=== PATIENT | female | born 1940 | race Caucasian/White ===

== ENCOUNTER 2016-12-01 14:31 | Inpatient (IN) | payer MEDICARE ==
[2016-12-01] MEDS ORDERED: NS 0.9% 1000 ML* 1,000 ML IV ONE (17:38)
[2016-12-01 18:18] LABS: Hematocrit 26 % (35-47); Hemoglobin 8.5 g/dl (12.0-16.0); Mean Corpuscular HGB Conc 32 g/dl (31-36); Mean Corpuscular Hemoglobin 31 pg (27-31); Mean Corpuscular Volume 95 fL (80-97); Mean Platelet Volume 8 um3 (7.4-10.4); Red Blood Count 2.79 10^6/ul (4.0-5.4); Red Cell Distribution Width 14 % (10.5-15); White Blood Count 9.7 10^3/ul (3.5-10.8)
[2016-12-01 18:19] LABS: Add Diff/Slide Review? Manual Diff Added; Comments Flag Yes
[2016-12-01 18:25] LABS: Albumin 3.3 g/dL (3.2-5.2); BUN/Creatinine Ratio 30.5 (8-20); Calcium 8.6 mg/dL (8.6-10.3); EGFR African American 42.2 (>60); EGFR Non-African American 32.8 (>60); Globulin 3.2 g/dL (2-4); Total Bilirubin 0.6 mg/dL (0.2-1.0); Total Protein 6.5 g/dL (6.4-8.9)
[2016-12-01 18:27] LABS: Troponin I 0.01 ng/mL (<0.04)
--- NOTE | 2016-12-01 18:27 | RAD ---
INDICATION: Hypotension COMPARISON: Chest x-ray dated November 02, 2009 TECHNIQUE: Single AP portable view of the chest was obtained. FINDINGS: Image quality is compromised due to the relative inferiority of a portable chest x-ray. Again seen is a right upper chest cardiac pacemaker with 2 leads overlying the heart. There is an intramedullary wilmer fixated with medullary screws overlying the proximal left humerus. The heart and mediastinum exhibit normal size and contour. The lungs are grossly clear. There is no evidence of a large pleural effusion. Visualized bones are normal for the patient's age. IMPRESSION: No radiographic evidence for acute cardiopulmonary abnormality on this portable chest x-ray.
[2016-12-01 18:44] LABS: Add Path Review? YES; Hypochromasia 1+; Neutrophil % 62 % (38-83); Reactive Lymph % 3 % (0-6)
[2016-12-01 19:23] LABS: Urine Bacteria Absent (Absent); Urine Bilirubin Negative (Negative); Urine Glucose Negative (Negative); Urine Nitrite Negative (Negative)
[2016-12-01] MEDS ORDERED: cefTRIAXone(*) 1 GM in NS 0.9% 50 ML* 50 ML IVPB ONE (19:59)
[2016-12-01] MEDS ORDERED: DOXYcycline CAP(*) 100 MG PO SCH (21:00)
[2016-12-01 22:47] LABS: Ferritin 321.9 ng/mL (11-307)
[2016-12-01 22:50] LABS: Folate > 20.00 ng/mL (>3.99)
[2016-12-01 22:51] LABS: Vitamin B12 617 pg/mL (180-914)
[2016-12-01] MEDS: traMADol TAB* 50 MG PO SCH (23:01)
[2016-12-01] MEDS: NS 0.9% 1000 ML* 1,000 ML IV SCH (23:02)
[2016-12-01] MEDS: Carvedilol TAB* 6.25 MG PO SCH (23:02)
[2016-12-01 23:20] LABS: Total Iron Binding Capacity 307 mcg/dL (250-450); Transferrin 219 mg/dL (203-362)
[2016-12-01 23:22] LABS: Iron < 15 ug/dL (50-212)
--- NOTE | 2016-12-01 23:55 | HP ---
CC: RED Alonzo; Ike Johnson * HOSPITAL MEDICINE HISTORY AND PHYSICAL: DATE OF ADMISSION: 12/01/16 PRIMARY CARE PROVIDERS: RED Alonzo; "Dr. Otilia Perkins." ATTENDING PHYSICIAN: Dr. Brissa Olson * (dictation provided by Elizabeth Valerio NP) . CHIEF COMPLAINT: Tiredness, cough, and low-grade fever. HISTORY OF PRESENT ILLNESS: Ms. Austin is a 76-year-old female with a past medical history for 4 hip surgeries with arthritis, hypertension, hyperlipidemia , pacemaker for a left bundle branch block, and chronic renal insufficiency, who presents to the hospital today with concern for extreme tiredness. Ms. Austin states that she has been feeling unwell for about 3 weeks. She noted as of about a week ago that she was having some incontinence of urine that was very unusual for her. She denied any dysuria. She has had a low-grade temperature with fever running around 100 each evening. On Thursday of last week , she went to see her primary care physician and was diagnosed with Lyme disease. At that point, she was prescribed amoxicillin, which she started taking on Thursday. She continued to feel worse through the week despite being on amoxicillin. She was seen on Thursday by Dr. Perkins, who again checked her labs and noted that she was having persistent anemia. Unfortunately, I do not have those labs available, but per the patient's report, Dr. Perkins, wanted to see her back on Thursday. He saw her today and again scarlett her labs and noted that her hemoglobin was 7.9 and had her brought to [facility] for a blood transfusion. Ms. Austin states that she had no bites that she thought were consistent with tick bites. 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 She also reports in the past week, she has developed a nonproductive cough. She did have a chest x-ray with Dr. Perkins, who reported to her that it did not show any acute infiltrate or abnormality. She further reports a poor appetite, but she denies any nausea, vomiting, abdominal pain. She has had no chest pain, no shortness of breath. The patient does state that she has had formed stool, recently, she has had only brown stool until starting her iron supplementation just this week and now has noted black stool. In the emergency room, though Ms. Austin's hemoglobin was 7.9 at [facility] today , it was 8.5 on our check. Her platelet count is normal at 160, white blood cell is normal at 9.7. She has a slight worsening of her BUN and creatinine to 47 and 1.54 respectively. Her alk phos is slightly elevated at 139. Her urine shows 3+ leuk esterase and epithelial cells, but no bacteria. Chest x-ray shows no acute infiltrate. EKG shows paced rhythm. PAST MEDICAL HISTORY: 1. Diagnosis of Lyme disease earlier this week. 2. Right hip surgery x2. 3. Left hip surgery x2. 4. Tubal ligation. 5. Arthritis. 6. Osteoporosis. 7. Hypertension. 8. Hyperlipidemia. 9. History of pacemaker for left bundle branch block. 10. Chronic kidney disease. MEDICATIONS: 1. Amoxicillin 500 mg p.o. t.i.d. 2. Multivitamin with mineral 2 tabs p.o. daily. 3. Ferrous sulfate 4 tabs p.o. daily. 4. Simvastatin 10 mg p.o. at bedtime. 5. Carvedilol 12.5 mg p.o. t.i.d. 6. Tramadol 50 mg p.o. q.6 hours. 7. Oxycodone/acetaminophen 5/325 mg 1 tab p.o. q.4 hours. ALLERGIES: To BACLOFEN and SULFA ANTIBIOTICS. FAMILY HISTORY: The patient's mother related to cancer at 78. Father at 86 related to heart disease. SOCIAL HISTORY: No report of alcohol, tobacco, or drug use. The patient is a falcon. She states that her son, Uriel Erazo, would be her healthcare proxy , he is in [place], his phone number is [phone]. REVIEW OF SYSTEMS: A 14-point review of systems was completed with Ms. Austin and all those not mentioned above were negative. PHYSICAL EXAMINATION GENERAL: Ms. Austin is lying in the bed. She is in no acute distress. VITAL SIGNS: Temperature 99.4, respiratory rate 12, O2 saturation 100% on room air, blood pressure 129/80, heart rate 80. LUNGS: Clear to auscultation bilaterally with no accessory muscle use and good aeration. HEART: S1, S2. No murmur, rub, or gallop and regular. ABDOMEN: Soft, nontender with bowel sounds positive x4. EXTREMITIES: No cyanosis or edema. NEURO: She is alert, she is oriented x3. She moves all extremities equally. There is no facial asymmetry or focal weakness. Extraocular movements are intact. SKIN: Intact. DIAGNOSTIC STUDIES/LAB DATA: WBC 9.7, hemoglobin 8.5, hematocrit 26, platelet count 160. In review of previous record, I note the patient has had low hemoglobin, but this was all related to hip surgeries. Iron 1.08. Urine again shows 3+ leuk esterase, no nitrite, positive epithelial cells, and no bacteria. Chest x-ray shows no acute intrathoracic process. EKG shows paced rhythm and heart rate of about 70. ASSESSMENT AND PLAN: Ms. Austin is a 76-year-old female with a past medical history of pacemaker for which she reports is a left bundle branch block, chronic kidney disease, hypertension, hyperlipidemia, multiple hip surgeries, and recent positive diagnosis for Lyme earlier this week, who presents to the hospital today with concern for severe tiredness, low energy, and anemia. Our plans are for observation in the hospital for the followin. Anemia: It appears at this point she is symptomatic from her anemia, although of course this could be related to her Lyme disease as well. Her hemoglobin has been noted to be as low as 7.9 and her blood pressure was noted to be low at Dr. Perkins's office down to the 80s systolically. I think it would be prudent to treat her with1 unit of packed red blood cells to see if these improve those parameters. It is not clear what is driving her anemia. She has no report of dark stools prior to starting iron this week. I have sent a stool occult blood and this is pending. I do note that Lyme disease can rarely be associated with anemia Anaplasmosis is more associated with anemia; PCR is pending. I will also add on a B12, folate and iron studies. 2. Urinary tract infection: The patient has no bacteria in her urine, but she does have 3+ leuk esterase and is reporting incontinence at home. Plan to treat with doxycycline, which would also cover for Lyme disease or other tick borne illness. 3. Lyme disease: Again, this was diagnosed at Dr. Perkins's office. Plan to continue treatment, but I am going to switch over to doxycyline, which would offer better coverage for any co-infection with other tick-borne illness such as anaplasmosis as well as cover her urinary tract infection. 4. Fever. Patient is febrile, which could be associated with lyme infection. Fortunately her vitals are otherwise stable. She has no leukocytosis. CRP is pending. 5. History of hypertension: Continue Coreg. 6. DVT prophylaxis: With heparin subcu. 7. Disposition: To the medical floor. TIME SPENT: Approximately 60 minutes was spent on the admission of this patient , more than half the time was spent with the patient at the bedside reviewing the events leading up to this hospitalization, performing the physical examination, and reviewing the plan of care. ELIZABETH VALERIO, GARCIA [id number]/[facility] #: [id number] EL
[2016-12-02] MEDS: Acetaminophen TAB* 325 MG PO PRN (00:23)
[2016-12-02] MEDS: traMADol TAB* 50 MG PO SCH ×4 (05:18→23:56)
[2016-12-02 07:18] LABS: Hematocrit 23 % (35-47); Hemoglobin 7.4 g/dl (12.0-16.0); Mean Corpuscular HGB Conc 33 g/dl (31-36); Mean Corpuscular Hemoglobin 30 pg (27-31); Mean Corpuscular Volume 93 fL (80-97); Mean Platelet Volume 8 um3 (7.4-10.4); Red Blood Count 2.46 10^6/ul (4.0-5.4); Red Cell Distribution Width 15 % (10.5-15); White Blood Count 7.2 10^3/ul (3.5-10.8)
[2016-12-02 07:20] LABS: Add Diff/Slide Review? Manual Diff Added; BUN/Creatinine Ratio 30.8 (8-20); Calcium 7.6 mg/dL (8.6-10.3); Comments Flag Yes; EGFR African American 44.9 (>60); EGFR Non-African American 34.9 (>60)
[2016-12-02 07:44] LABS: C Reactive Protein 118.2 mg/L (< 5.00)
[2016-12-02] MEDS ORDERED: Nitrofurantoin Macrocrystals* 50 MG CAP PO SCH (09:00)
[2016-12-02] MEDS: Carvedilol TAB* 6.25 MG PO SCH ×3 (10:05→20:49)
[2016-12-02] MEDS: DOXYcycline CAP(*) 100 MG PO SCH ×2 (10:12→20:48)
[2016-12-02] MEDS: NS 0.9% 1000 ML* 1,000 ML IV SCH ×2 (10:19→20:50)
--- NOTE | 2016-12-02 14:56 | PN ---
Subjective Date of Service: 12/02/16 Interval History: HOSPITALIST PROGRESS NOTE Patient seen and examined at bedside. She feels a little better today. Major complaint is fatigue. Denies dyspnea, but has frequent dry cough. Family History: Unchanged from Admission Social History: Unchanged from Admission Past Medical History: Unchanged from Admission Objective Active Medications: Acetaminophen (Tylenol Tab*) 650 mg PO Q4H PRN PRN Reason: FEVER Last Admin: 12/02/16 00:23 Dose: 650 mg Carvedilol (Coreg Tab*) 12.5 mg PO TID [facility] Last Admin: 12/02/16 13:48 Dose: 12.5 mg Doxycycline Hyclate (Vibramycin Cap(*)) 100 mg PO BID [facility] Last Admin: 12/02/16 10:12 Dose: 100 mg Sodium Chloride (Ns 0.9% 1000 Ml*) 1,000 mls @ 100 mls/hr IV PER RATE [facility] Last Admin: 12/02/16 10:19 Dose: 100 mls/hr Oxycodone/Acetaminophen (Percocet 5/325 Tab*) 1 tab PO Q4H PRN PRN Reason: PAIN - MILD TO MODERATE Tramadol HCl (Ultram*) 50 mg PO Q6HR [facility] Last Admin: 12/02/16 13:48 Dose: 50 mg Vital Signs 12/02/16 12/02/16 12/02/16 07:18 07:40 08:01 Temperature 98.4 F Pulse Rate 62 Respiratory 18 20 Rate Blood Pressure 85/44 94/58 (mmHg) O2 Sat by Pulse 95 Oximetry Oxygen Devices in Use Now: None Appearance: Pleasant lady lying in bed in NAD. Eyes: No Scleral Icterus Ears/Nose/Mouth/Throat: Mucous Membranes Moist Neck: Trachea Midline Respiratory: Symmetrical Chest Expansion and Respiratory Effort, Clear to Auscultation Cardiovascular: RRR - Normal S1 and S2 Abdominal: NL Sounds; No Tenderness; No Distention Extremities: No Edema Neurological: Alert and Oriented x 3, NL Muscle Strength and Tone Lines/Tubes/Other Access: Clean, Dry and Intact Peripheral IV Nutrition: Taking PO's Result Diagrams: 12/02/16 06:49 12/02/16 06:49 Assess/Plan/Problems-Billing Assessment: Mrs. Austin is a 76yo F with PMH of HTN, HLD, s/p pacer, arthritis, osteoporosis , s/p hip replacement, who presented to ED with c/o 2 weeks of fatigue, weakness , intermittent fevers, found to have worsening anemia. - Patient Problems (1) Fever Comment: - Etiology unclear at this time. - Lyme serology 11/26/16 showed positive IgG, but negative IgM. - Erlichia/Anaplasma pending. - Check blood cultures. - CxR showed no infiltrate and UA was abnormal - follow urine culture. - Continue doxycycline for now. - ID consult requested. (2) Anemia Comment: - As per our records, patient has been anemic at least since 2011, but those CBCs were checked during surgical admissions. - Anemia w/u shows stool negative for blood (stools are black likely because of the iron she's taking). Iron level is low at <15, but ferritin is high at 322, with normal folate and B12. - Hb is lower today after receiving 1 PRBC last night - check haptoglobin and LDH for possible hemolysis. - Hematology consult requested before giving her more blood. (3) Thrombocytopenia Comment: - Likely associated with current infection. - Continue to monitor. (4) HTN (hypertension) Comment: - Continue Coreg. (5) DVT prophylaxis Comment: - SQ heparin. (6) Full code status Status and Disposition: Change to inpatient.
[2016-12-02 15:27] LABS: Immature Retic Fraction 0.59
[2016-12-02 15:28] LABS: Corrected Retic Count 1.3 % (0.5-1.5)
[2016-12-02 17:17] LABS: RBC Parasite Smear No Parasites Seen (No Parasite)
[2016-12-02] MEDS ORDERED: cefTRIAXone VIAL(*) 1,000 MG in NS 0.9% 50 ML* 50 ML IVPB SCH (21:00)
--- NOTE | 2016-12-02 21:27 | CONS ---
CONSULTATION REPORT: DATE OF CONSULT: 12/02/16 REQUESTING PHYSICIAN: Dr. Cooper. CONSULTING SERVICE: Infectious Disease. REASON FOR CONSULT: Fever, cough. IMPRESSION: 1. Ten days of fevers, myalgia, cough productive of sputum occasionally, no hemoptysis, no dyspnea, no infiltrate on chest x-ray. Pneumonia seems unlikely. She did have pharyngitis and some runny nose, postnasal drip. This could predominantly be a viral upper respiratory infection. She has had urinary incontinence which is unusual for her, so the fever could be more related to a cystitis, though her urinalysis is not particularly impressive. She has anemia which is chronic, maybe a little bit worse than baseline. If there is an infection driving that, it could babesiosis which is the only tick borne infection that causes anemia, though I think that is less likely or if present must be fairly low grade infection given the stable hemoglobin here. 2. Chronic normocytic anemia, normal bilirubin. 3. Chronic kidney disease. 4. Elevated C-reactive protein and thrombocytopenia, could be all reactive to the underlying systemic infection which could cause a cough as well. 5. Cough, could be related to bronchitis, postnasal drip. No evidence of reflux, could be a response to systemic infection. Her various cultures are pending. She has not had Babesia testing. 6. SULFA allergy. RECOMMENDATIONS: Continue doxycycline. We will cover her urine. She does not have serologic evidence of a Lyme infection at this point, but would cover that Lyme as well. Babesia, PCR and thick smear. HISTORY OF PRESENT ILLNESS: This is a 76-year-old woman with chronic anemia, admitted with fatigue, cough and fever. They came on about 10 days ago, first the cough which became occasionally productive of brownish sputum. No hemoptysis, no shortness of breath or chest pain. Her cough has persisted, it is mostly nonproductive. She has had some aches and chills, so she was started on amoxicillin to cover Lyme. She had a Lyme serology on the , ZAKIA positive, Western Blot negative, IgM and IgG positive. She has had an occasional fever here to 38.2. She had noticed a few days of urinary incontinence as well, which is usual for her. No dysuria or frequency. She was found to be anemic as an outpatient, little bit worse than baseline. Her last hemoglobin was 11 in March, down to 8 on , 7.4 this morning. She had some fluid resuscitation overnight. She had a chest x-ray yesterday that showed no acute process. She had blood and urine cultures sent that are pending. Urinalysis showed no blood but there is leukocyte esterase. She has had no travel. She spend time outdoors, raises a lot of animals. She has no sick contacts. PAST MEDICAL HISTORY: 1. Normocytic anemia. 2. Bilateral hip arthroplasty with revision of each. 3. Status post tubal ligation. 4. Osteoarthritis. 5. Osteoporosis. 6. Hypertension. 7. Hyperlipidemia. 8. Pacemaker placement. 9. Chronic kidney disease. MEDICATIONS: 1. Tylenol. 2. Coreg. 3. Doxycycline 100 mg by mouth twice daily. 4. Oxycodone. 5. Tramadol. ALLERGIES: To BACLOFEN and SULFA. FAMILY HISTORY: Mom of cancer at 78. Father at 86 due to heart disease. SOCIAL HISTORY: She lives in [place]. She lives with a friend. 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 No ticks she has noticed. REVIEW OF SYSTEMS: All negative to full review of systems except as noted above. PHYSICAL EXAM: Vital Signs: Temperature is 37, heart rate 70, respiratory rate 18, blood pressure 98/47, O2 sat 93% on room air. General: She is awake, not in distress. HEENT: There is no conjunctival hemorrhage. Oropharynx without lesions. Neurologic: She is oriented x3. Follows all commands. Neck : Supple without nuchal rigidity. Lymph nodes: There is no inguinal, axillary , or epitrochlear lymphadenopathy. Heart has regular rate and rhythm without murmurs, rubs or gallops. Lungs are clear to auscultation bilaterally. Abdomen : Soft, nontender, nondistended. There are bowel sounds present. Skin: There is no rash or splinter hemorrhages. Musculoskeletal: No spine tenderness to palpation. No joint synovitis. She has well-healed bilateral hip arthroplasty scars. LABORATORY DATA: White blood cell count 7.2, hemoglobin 7, platelets 114,000 down from 160,000 yesterday. Creatinine 1.4. CRP 118. Folate 20, B12 600. Troponin 0. LDH 160. Please see impressions and recommendations outlined above, which I have discussed with Dr. Cooper and Dr. Cannon. Thank you for asking me to see Ms. Austin in consultation. [id number]/[facility] #: [id number] EL
--- NOTE | 2016-12-02 22:09 | CONS ---
CONSULTATION REPORT: DATE OF CONSULT: 12/02/16 REASON FOR CONSULT: Anemia. ATTENDING PHYSICIAN: Dr. Brissa Olson. PRIMARY CARE PROVIDERS: Dr. Perkins and RED Alonzo HISTORY OF PRESENT ILLNESS: This is a 76-year-old female, who said she has had anemia before. She was diagnosed by Dr. German approximately 10 years ago. Has taken iron pills in the past, but no other therapy, no other evaluation that she is aware of. She has generally tolerated her blood counts well. She noticed increasing fatigue this year. First noticed when it got very hot out and she had difficult time walking without sweating heavily. She has never tolerated hot weather well, but this year seemed worse than most. Approximately 1 week prior to admission, she developed urinary incontinence, which is unusual for her. She developed temperature around 100 and the fever has remained persistent. Dry cough began, which is consistent through night and day. She denies any shortness of breath, chest pain, palpitations. She was seen by her primary care physician and diagnosed with Lyme disease and started on amoxicillin 1 week prior to admission. Despite the amoxicillin, her symptoms progressed. She had followup with Dr. Perkins, who rechecked her blood count and noted a hemoglobin of 7.9, this has fallen below her baseline that he recommended she go to [facility] for transfusion. [place], works aside with yard animals, remains very active. She denies any change in bowel habits. She has normal brown stool. She had one large black stool 4 days after starting iron pills as directed by Dr. Perkins. Denies nausea , vomiting, or abdominal pain. No diarrhea. On presentation, she had a CBC that showed hemoglobin of 8.5, MCV 95, RDW 14, platelets 160, normal white count with slight left shift and slight increased monocytes. She received 1 unit of packed red blood cells, the repeat CBC showed hemoglobin 7.4 with similar indices and platelets down to 150, white count was 7.2 down from 9.7. Chemistry showed an elevated creatinine of 1.54, baseline of 1.7; iron less than 15, saturation 5%, but ferritin of 321, and a B12 of 617. C- reactive protein of 118. Her urine showed leukocyte esterase and trace red blood cells. She has one stool guaiac on 12/01/16 at 9:15 p.m. that was negative. She has been started on doxycycline, given IV fluids for hydration, and ceftriaxone IV. She has been on carvedilol, which has continued and been treated with aspirin. Because of the decrease in hemoglobin after transfusion, Hematology consult was called. PAST MEDICAL HISTORY: 1. Lyme disease diagnosed last week. 2. Arthritis. 3. Osteoporosis. 4. Hypertension. 5. Hyperlipidemia. 6. Left bundle branch block and permanent pacemaker. 7. Chronic renal disease. PAST SURGICAL HISTORY: She has had hip surgery 4 times, 2 on the right and 2 on the left; tubal ligation. MEDICATIONS: On admission: 1. Amoxicillin 500 t.i.d. 2. Multivitamin. 3. Ferrous sulfate 4 tabs daily. 4. Simvastatin 10 mg a day. 5. Carvedilol 12.5 mg t.i.d. 6. Tramadol 50 mg q.6. 7. Oxycodone and acetaminophen 5/325 q.4 hours p.r.n. ALLERGIES: BACLOFEN and ANTIBIOTICS. FAMILY HISTORY: Mother of cancer at 78. Father of heart disease at age 86. We do not know what cancer the mother had. 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 Her son, Uriel Erazo, is the healthcare proxy; he lives in [place]. His phone number is [phone]. Denies alcohol or tobacco. REVIEW OF SYSTEMS: As explained above, otherwise 14-point review is negative. PHYSICAL EXAM: Temperature 98.3, BP 98/34, heart rate 69, respiratory rate 16. HEENT: Oral mucosa still dry. No lesions. No cervical or supraclavicular lymphadenopathy. Lungs: Clear to auscultation. Heart: Regular rate and rhythm. S1 and S2. I do not hear any murmurs. Abdomen is mildly distended, but no hepatosplenomegaly. She is incontinent of urine. Lymph Nodes: No peripheral lymphadenopathy. Skin: Without visible rashes, did not do full skin exam. Extremities: +1 edema in lower extremities, good pulses x4. She is warm to the touch throughout. Neurological: Alert and oriented x3. Spontaneous movement. Did not do full neuro exam. LABORATORY DATA: As noted above. Additionally, blood film shows mild hypochromia and variable red blood cell 5, possibly secondary to her transfusion. She has some scattered schistocytes, but no evidence of significant intravascular hemolysis. Normal-appearing white cells without dysplasia; normal-appearing platelets, they are small. ASSESSMENT AND PLAN: A 76-year-old female, who has acute on chronic anemia. Differential diagnosis for the chronic anemia includes mild bone marrow dysfunction, renal insufficiency erythropoietin, anemia of chronic disease. Acutely, differential could include upper gastrointestinal bleeding, she may have exacerbation of her underlying anemia from her acute illness and inflammation that unveiled with hydration after admission. Today, with hemoglobin 7.4, she does not have overt symptoms of anemia. 1. We will send reticulocyte count as well as serum protein electrophoresis and erythropoietin level. 2. Manual blood films did not show dysplasia, if cytopenias are persistent, we could proceed to bone marrow biopsy. 3. I will not transfuse her at this time as she is not overtly symptomatic. 4. Currently being seen by Dr. Hernandez, but if workup through ID is not revealing, would consider endoscopy. 5. We will continue to follow while she is in the hospital. [id number]/[facility] #: [id number] [facility]ENTERMelody
[2016-12-03] MEDS: traMADol TAB* 50 MG PO SCH ×3 (05:31→17:55)
[2016-12-03 06:02] LABS: Hematocrit 23 % (35-47); Hemoglobin 7.4 g/dl (12.0-16.0); Mean Corpuscular HGB Conc 33 g/dl (31-36); Mean Corpuscular Hemoglobin 30 pg (27-31); Mean Corpuscular Volume 93 fL (80-97); Mean Platelet Volume 8 um3 (7.4-10.4); Red Blood Count 2.45 10^6/ul (4.0-5.4); Red Cell Distribution Width 16 % (10.5-15); White Blood Count 5.9 10^3/ul (3.5-10.8)
[2016-12-03 06:03] LABS: Add Diff/Slide Review? Manual Diff Added; Comments Flag Yes
[2016-12-03 06:24] LABS: BUN/Creatinine Ratio 25.4 (8-20); Calcium 7.7 mg/dL (8.6-10.3); EGFR African American 59.8 (>60); EGFR Non-African American 46.5 (>60); Potassium 4.1 mmol/L (3.5-5.0)
[2016-12-03 06:59] LABS: Hypochromasia 1+; Immature Granulocytes 11 % (0-9); Macrocytosis 1+; Microcytosis 2+; Neutrophil % 49 % (38-83)
[2016-12-03] MEDS: NS 0.9% 1000 ML* 1,000 ML IV SCH (07:39)
[2016-12-03] MEDS: DOXYcycline CAP(*) 100 MG PO SCH ×2 (09:04→20:27)
[2016-12-03] MEDS: Carvedilol TAB* 6.25 MG PO SCH ×3 (09:04→20:27)
[2016-12-03] MEDS ORDERED: Lidocaine 2% PF * 5 ML VIAL IV ONE (10:55)
--- NOTE | 2016-12-03 11:22 | PN ---
Progress Note - Progress Note Date of Service: 12/03/16 SOAP: Subjective: CC: fever HPI: 76 year old woman with cough, fever for 2 weeks. CXR negative. Fever overnight. Ongoing non productive cough. No rash or diarrhea. Objective: [] Vital Signs Temp 38.1 C 12/03/16 07:57 Pulse 73 12/03/16 07:57 Resp 17 12/03/16 08:00 BP 132/49 12/03/16 07:57 Pulse Ox 92 12/03/16 07:57 Intake & Output 12/02/16 12/03/16 12/03/16 18:59 06:59 18:59 Intake Total 275 1136 0 Output Total 0 Balance 275 1136 0 Intake: IV Fluids 90 936 NS (0.9%) 936 Oral 185 200 0 Output: Urine 0 Other: Estimated Void Large # Bowel Movements 0 Gen:AAOx3 HEENT:PERRL, MMM Neck:supple Heart:RRR no murmur Lungs:CTA BL Abd:+BS NTND soft Skin: no rash MSK: no spine tenderness no joint synovitis Laboratory Results - last 24 hr 12/01/16 12/02/16 12/02/16 18:00 06:49 06:49 WBC RBC RBC (Retic) 2.46 L Hgb Hct HCT (Retic) 23 L MCV MCH MCHC RDW Plt Count MPV Immature Gran % (Auto) Absolute Neuts (auto) Absolute Lymphs (auto) Absolute Monos (auto) Absolute Eos (auto) Absolute Basos (auto) Absolute Nucleated RBC Neutrophils % Band Neutrophils % Lymphocytes % Monocytes % Normal RBC Morphology Hypochromasia Microcytosis Macrocytosis Retic Count, Calc 2.6 H Corrected Retic Count 1.3 Retic Shift Factor 2.0 Retic Production Index 0.70 Immature Retic Fraction 0.59 Mean Retic Volume 105.6 Hem Pathologist Commnt Sodium Potassium Chloride Carbon Dioxide Anion Gap BUN Creatinine Est GFR ( Amer) Est GFR (Non-Af Amer) BUN/Creatinine Ratio Glucose Calcium Lactate Dehydrogenase 163 Blood Parasite Screen No parasites seen 12/03/16 12/03/16 05:29 05:29 WBC 5.9 RBC 2.45 L RBC (Retic) Hgb 7.4 L Hct 23 L HCT (Retic) MCV 93 MCH 30 MCHC 33 RDW 16 H Plt Count 108 L MPV 8 Immature Gran % (Auto) 11 H Absolute Neuts (auto) 3.2 Absolute Lymphs (auto) 1.1 Absolute Monos (auto) 1.6 H Absolute Eos (auto) 0 Absolute Basos (auto) 0.1 Absolute Nucleated RBC 0.01 Neutrophils % 49 Band Neutrophils % 11 H Lymphocytes % 21 L Monocytes % 19 H Normal RBC Morphology Not Reportable Hypochromasia 1+ Microcytosis 2+ Macrocytosis 1+ Retic Count, Calc Corrected Retic Count Retic Shift Factor Retic Production Index Immature Retic Fraction Mean Retic Volume Hem Pathologist Commnt Sodium 136 Potassium 4.1 Chloride 111 Carbon Dioxide 19 L Anion Gap 6 BUN 29 H Creatinine 1.14 H Est GFR ( Amer) 59.8 Est GFR (Non-Af Amer) 46.5 BUN/Creatinine Ratio 25.4 H Glucose 95 Calcium 7.7 L Lactate Dehydrogenase Blood Parasite Screen Assessment: 1. Fever with cough, no infiltrate; ?bronchitis, less likely UTI; with anemia Babesia PCR pending though less likely 2. urinary incontinance, chronic 3. sulfa allergy Plan: 1. continue doxycycline, awaiting BC, UC; bone marrow pending. Discussed with Dr Cannon and Dr Cooper
--- NOTE | 2016-12-03 11:22 | PN ---
Progress Note - Progress Note Date of Service: 12/03/16 SOAP: Subjective: []Stable today, feels a little better. Continues to have cough. Acetaminophen (Tylenol Tab*) 650 mg PO Q4H PRN PRN Reason: FEVER Last Admin: 12/02/16 00:23 Dose: 650 mg Carvedilol (Coreg Tab*) 12.5 mg PO TID [facility] Last Admin: 12/03/16 09:04 Dose: 12.5 mg Doxycycline Hyclate (Vibramycin Cap(*)) 100 mg PO BID [facility] Last Admin: 12/03/16 09:04 Dose: 100 mg Sodium Chloride (Ns 0.9% 1000 Ml*) 1,000 mls @ 100 mls/hr IV PER RATE [facility] Last Admin: 12/03/16 07:39 Dose: 100 mls/hr Oxycodone/Acetaminophen (Percocet 5/325 Tab*) 1 tab PO Q4H PRN PRN Reason: PAIN - MILD TO MODERATE Tramadol HCl (Ultram*) 50 mg PO Q6HR [facility] Last Admin: 12/03/16 05:31 Dose: 50 mg Objective: [] Vital Signs Temp Pulse Resp BP Pulse Ox 100.5 F 73 17 132/49 92 12/03/16 07:57 12/03/16 07:57 12/03/16 08:00 12/03/16 07:57 12/03/16 07:57 HEENT: CTA RRR S1S2 Mild distension, no tenderness Incontinent of urine +1 ANTONY Abnormal Lab Results 12/01/16 12/02/16 12/02/16 18:00 06:49 06:49 WBC RBC RBC (Retic) 2.46 L Hgb Hct HCT (Retic) 23 L MCV MCH MCHC RDW Plt Count MPV Immature Gran % (Auto) Absolute Neuts (auto) Absolute Lymphs (auto) Absolute Monos (auto) Absolute Eos (auto) Absolute Basos (auto) Absolute Nucleated RBC Neutrophils % Band Neutrophils % Lymphocytes % Monocytes % Normal RBC Morphology Hypochromasia Microcytosis Macrocytosis Retic Count, Calc 2.6 H Corrected Retic Count 1.3 Retic Shift Factor 2.0 Retic Production Index 0.70 Immature Retic Fraction 0.59 Mean Retic Volume 105.6 Hem Pathologist Commnt Sodium Potassium Chloride Carbon Dioxide Anion Gap BUN Creatinine Est GFR ( Amer) Est GFR (Non-Af Amer) BUN/Creatinine Ratio Glucose Calcium Lactate Dehydrogenase 163 Blood Parasite Screen No parasites seen 12/03/16 12/03/16 05:29 05:29 WBC 5.9 RBC 2.45 L RBC (Retic) Hgb 7.4 L Hct 23 L HCT (Retic) MCV 93 MCH 30 MCHC 33 RDW 16 H Plt Count 108 L MPV 8 Immature Gran % (Auto) 11 H Absolute Neuts (auto) 3.2 Absolute Lymphs (auto) 1.1 Absolute Monos (auto) 1.6 H Absolute Eos (auto) 0 Absolute Basos (auto) 0.1 Absolute Nucleated RBC 0.01 Neutrophils % 49 Band Neutrophils % 11 H Lymphocytes % 21 L Monocytes % 19 H Normal RBC Morphology Not Reportable Hypochromasia 1+ Microcytosis 2+ Macrocytosis 1+ Retic Count, Calc Corrected Retic Count Retic Shift Factor Retic Production Index Immature Retic Fraction Mean Retic Volume Hem Pathologist Commnt Sodium 136 Potassium 4.1 Chloride 111 Carbon Dioxide 19 L Anion Gap 6 BUN 29 H Creatinine 1.14 H Est GFR ( Amer) 59.8 Est GFR (Non-Af Amer) 46.5 BUN/Creatinine Ratio 25.4 H Glucose 95 Calcium 7.7 L Lactate Dehydrogenase Blood Parasite Screen Assessment: []76 year old with acute on chronic normocytic anemia. Acute infection, viral vs mild bacterial infection. Iron studies are unclear and differential includes dysplasia, anemia of chronic disease, infiltrative process is possible but not likely. At this time will proceed with bone marrow biopsy. Plan: []1. Hold iron at this time, will check iron stain on bone marrow. 2. Bone marrow with aspirate, will send flow and save for chromosomes. No FISH studies ordered. 3. Will follow in hospital and then at [place] in clinic.
--- NOTE | 2016-12-03 11:48 | PROCNOTE ---
Hematology/Oncology Procedure Hematology/Oncology Procedure Note: Bone Marrow Biopsy: Informed consent obtained. Time out performed per protocol. Anesthesia 2% lidocaine, approx. 6 mLs, administered with good effect. Bone marrow biopsy and aspirate performed on left posterior superior iliac crest without obvious complications. Pt. tolerated well. Minimal blood loss.
[2016-12-03 13:15] LABS: Haptoglobin 196 mg/dL (30 - 200)
--- NOTE | 2016-12-03 13:59 | PN ---
Subjective Date of Service: 12/03/16 Interval History: HOSPITALIST PROGRESS NOTE Patient seen and examined at bedside. She feels a little better today. Cough is still present, but less frequent. Still has some stress urinary incontinence when she coughs. Family History: Unchanged from Admission Social History: Unchanged from Admission Past Medical History: Unchanged from Admission Objective Active Medications: Acetaminophen (Tylenol Tab*) 650 mg PO Q4H PRN PRN Reason: FEVER Last Admin: 12/02/16 00:23 Dose: 650 mg Carvedilol (Coreg Tab*) 12.5 mg PO TID [facility] Last Admin: 12/03/16 13:39 Dose: 12.5 mg Doxycycline Hyclate (Vibramycin Cap(*)) 100 mg PO BID [facility] Last Admin: 12/03/16 09:04 Dose: 100 mg Sodium Chloride (Ns 0.9% 1000 Ml*) 1,000 mls @ 100 mls/hr IV PER RATE [facility] Last Admin: 12/03/16 07:39 Dose: 100 mls/hr Oxycodone/Acetaminophen (Percocet 5/325 Tab*) 1 tab PO Q4H PRN PRN Reason: PAIN - MILD TO MODERATE Tramadol HCl (Ultram*) 50 mg PO Q6HR [facility] Last Admin: 12/03/16 11:54 Dose: 50 mg Vital Signs 12/03/16 12/03/16 12/03/16 08:00 11:54 12:20 Temperature 99.4 F Pulse Rate 70 Respiratory 17 16 14 Rate Blood Pressure 123/54 (mmHg) O2 Sat by Pulse 95 Oximetry Oxygen Devices in Use Now: None Appearance: Pleasant lady lying in bed in [facility]. Eyes: No Scleral Icterus Ears/Nose/Mouth/Throat: Mucous Membranes Moist Neck: Trachea Midline Respiratory: Symmetrical Chest Expansion and Respiratory Effort, - - BS+ bilaterally with scattered rhonchi on the left. Cardiovascular: RRR - Normal S1 and S2 Abdominal: NL Sounds; No Tenderness; No Distention Extremities: No Edema Neurological: Alert and Oriented x 3, NL Muscle Strength and Tone Lines/Tubes/Other Access: Clean, Dry and Intact Peripheral IV Nutrition: Taking PO's Result Diagrams: 12/03/16 05:29 12/03/16 05:29 Assess/Plan/Problems-Billing Assessment: Mrs. Austin is a 76yo F with PMH of HTN, HLD, s/p pacer, arthritis, osteoporosis , s/p hip replacement, who presented to ED with c/o 2 weeks of fatigue, weakness , intermittent fevers, found to have worsening anemia. - Patient Problems (1) Fever Comment: - Etiology unclear at this time - bronchitis vs UTI. - Lyme serology 11/26/16 showed positive IgG, but negative IgM. - Erlichia/Anaplasma pending. - Blood cultures show no growth so far. - CxR showed no infiltrate and UA was abnormal - follow urine culture. - Continue doxycycline for now. - ID consult appreciated. (2) Anemia Comment: - As per our records, patient has been anemic at least since 2012, but those CBCs were checked during surgical admissions. - Anemia w/u shows stool negative for blood (stools are black likely because of the iron she's taking). Iron level is low at <15, but ferritin is high at 322, with normal folate and B12. - Hb is lower today after receiving 1 PRBC last night - LDH was normal. Drop is likely dilutional. - Hematology consult appreciated - s/p BM biopsy today. - Will request GI input. (3) Thrombocytopenia Comment: - Likely associated with current infection. - Continue to monitor. (4) HTN (hypertension) Comment: - Controlled. - Continue Coreg. (5) DVT prophylaxis Comment: - SQ heparin. (6) Full code status Status and Disposition: Inpatient.
[2016-12-03 15:06] LABS: Erythropoietin 78.2 mIU/mL (2.6 - 18.5)
[2016-12-03] MEDS: Albuterol HFA INHALER* 8 gm MDI INH SCH ×2 (15:33→21:43)
[2016-12-03 16:28] LABS: Albumin 2.3 g/dL (3.4-4.7); Gamma Globulin 0.7 g/dL (0.6-1.6); Total Protein(PEP) 4.6 g/dL (6.3 - 7.9)
[2016-12-03 18:32] LABS: Ehrlichia ewingii/canis Negative (Negative)
[2016-12-03] MEDS ORDERED: Benzonatate CAP* 100 MG PO PRN (19:53)
--- NOTE | 2016-12-03 20:02 | CONS ---
CC: Dr. Perkins [place], [place] * CONSULTATION REPORT: DATE OF CONSULTATION: 12/03/16 REASON FOR CONSULTATION: Iron deficiency anemia. NARRATIVE: This is a 76-year-old woman with a history of joint replacements, arthritis, and osteoporosis. She also has a pacemaker for left bundle-branch block and hypertension. She states that 2 to 3 weeks prior to admission, she developed a sense of fatigue, low-grade fevers, and a progressive dry cough. She was seen by her primary care physician and was thought to have Lyme disease , prescribed amoxicillin, but she developed worsening symptoms. Her filtration supervisor checked blood work and demonstrated anemia with a hemoglobin of 7.9. She was instructed to come to our facility and was admitted. On presentation here, she was complaining of fatigue and a dry cough. Further laboratory data demonstrated a hemoglobin on admission of 8.5, MCV of 95. She had chemistries, which demonstrated an iron saturation of 5%, an elevated ferritin of 321. She had 1 bowel movement since being admitted, which was dark in color but presumably that was due to iron ingestion and was guaiac negative. She has had evaluations by Infectious Disease (Dr. Hernandez) who is pursuing an infectious etiology for her cough and fatigue, although no organism has been identified. She is also being currently evaluated by Hematology and underwent a bone marrow biopsy today, the results of which are unremarkable. The peripheral blood smear did not show any significant evidence of hemolysis. She does have a history of anemia. She states that she has been told of anemia for many years, has been encouraged to take iron years ago. Laboratory data from a year and a half ago at the time of joint replacement demonstrated blood counts that ranged from 10.7 to a benjamin of 8, although that was postoperative. Her other most recent blood tests prior to this admission was in March 2016 where hemoglobin was 11.2. She has not noticed any rectal bleeding. She states that her stools have been normal other than after taking iron when it turned black, but typically it is brown in color once a day. She has had no abdominal pain, nausea, vomiting. She does not take any aspirin or NSAIDs. She has never had any endoscopic exams or colonoscopic exams. PAST MEDICAL HISTORY: Again includes arthritis for which she has undergone joint replacements. At one point, she was treated with methotrexate, but apparently had liver abnormalities and that was discontinued. She has a history of pacemaker for left bundle-branch block, chronic renal insufficiency, hypertension, hyperlipidemia. PAST SURGICAL HISTORY: Includes tubal ligation and joint replacement. MEDICATIONS: Her outpatient medicines were: 1. Amoxicillin. 2. Multivitamin. 3. Iron. 4. Simvastatin. 5. Carvedilol. 6. Tramadol. 7. Oxycodone. 8. Acetaminophen as needed. FAMILY HISTORY: Notable for father who had heart disease, mother she believes had lymphosarcoma. There is no history of GI malignancies. REVIEW OF SYSTEMS: She states that her weight has been stable and up until about 3 weeks ago, she was feeling well. She denies any dysphagia, heartburn, change in bowel habits, pruritus, jaundice. PHYSICAL EXAMINATION: She is a very pleasant older woman, in no acute distress. She does appear somewhat pale. Her temperature is 99.4, blood pressure is 123/54, heart rate is 70 and regular. Her lungs are relatively clear without any rhonchi or rales. Cardiac exam reveals a regular rhythm without murmur. Abdomen is soft. There is no tenderness or distention and bowel sounds are normoactive. There is no organomegaly. LABORATORY DATA: White count of 5.9, hemoglobin of 7.4, platelet count of 108, 000. Calculated retic count of 2.6, corrected to 1.3, which is normal. INR 1.08. BUN of 29, creatinine of 1.14. LFTs are normal other than for a slightly elevated alk phos of 139 on admission. Lyme titers demonstrate positive IgG, but negative IgM. Blood parasite screen was negative. IMPRESSION: A 76-year-old woman admitted with 3-week history of intermittent low-grade fevers, cough, malaise, and fatigue, initially thought to have Lyme disease, although serologies are not entirely consistent with that. She also has a background history of iron deficiency anemia. It is unclear whether the anemia is linked to her acute illness, as it does extend further back. It certainly has been more intensified more recently. Infectious etiologies and hematologic etiologies are being pursued. Certainly, GI blood loss could account for iron deficiency anemia and that was discussed with both her and . I recommended there for an upper endoscopy to be performed tomorrow to rule out any dyspeptic lesion. If unremarkable, then consideration either for an inpatient or outpatient colonoscopy was brought up as well. I will make arrangements for the upper endoscopy. [id number]/[facility] #: [id number] EL
[2016-12-04] MEDS: traMADol TAB* 50 MG PO SCH ×5 (00:09→23:35)
[2016-12-04 05:29] LABS: Comments Flag Yes; Hematocrit 25 % (35-47); Mean Corpuscular HGB Conc 32 g/dl (31-36); Mean Corpuscular Hemoglobin 30 pg (27-31); Mean Corpuscular Volume 93 fL (80-97); Mean Platelet Volume 8 um3 (7.4-10.4); Red Blood Count 2.67 10^6/ul (4.0-5.4); Red Cell Distribution Width 16 % (10.5-15); White Blood Count 6.3 10^3/ul (3.5-10.8)
[2016-12-04 05:30] LABS: Add Diff/Slide Review? Manual Diff Added
[2016-12-04 05:39] LABS: BUN/Creatinine Ratio 23.3 (8-20); Calcium 7.9 mg/dL (8.6-10.3); EGFR African American 67.2 (>60); EGFR Non-African American 52.2 (>60); Potassium 4.3 mmol/L (3.5-5.0)
[2016-12-04] MEDS: Albuterol HFA INHALER* 8 gm MDI INH SCH (06:25)
[2016-12-04 06:34] LABS: Hypochromasia 2+; Immature Granulocytes 9 % (0-9); Macrocytosis 1+; Microcytosis 1+; Neutrophil % 46 % (38-83); Reactive Lymph % 1 % (0-6)
[2016-12-04] MEDS ORDERED: guaiFENesin LIQ* 100 MG/5 ML UDC ONE (09:10)
[2016-12-04] MEDS: Carvedilol TAB* 6.25 MG PO SCH ×3 (09:12→22:03)
[2016-12-04] MEDS: DOXYcycline CAP(*) 100 MG PO SCH ×2 (09:12→21:57)
[2016-12-04] MEDS: guaiFENesin LIQ* 100 MG/5 ML UDC PO PRN (09:12)
[2016-12-04] MEDS: Acetaminophen TAB* 325 MG PO PRN ×2 (09:16→23:36)
[2016-12-04] MEDS: Albuterol 2.5 MG/3 ML NEB.SOL* (0.083%) INH SCH ×2 (10:14→17:52)
[2016-12-04] MEDS: Benzonatate CAP* 100 MG PO SCH ×2 (14:10→21:57)
--- NOTE | 2016-12-04 15:37 | PN ---
Subjective Date of Service: 12/04/16 Interval History: HOSPITALIST PROGRESS NOTE Patient seen and examined at bedside. Her major complaint today is her persistent cough. Denies dyspnea. Did not like the taste of Albuterol and would prefer not to use the MDI anymore. Family History: Unchanged from Admission Social History: Unchanged from Admission Past Medical History: Unchanged from Admission Objective Active Medications: Acetaminophen (Tylenol Tab*) 650 mg PO Q4H PRN PRN Reason: FEVER Last Admin: 12/04/16 09:16 Dose: 650 mg Albuterol (Ventolin 2.5 Mg/3 Ml Neb.Sofiya*) 2.5 mg INH Q8H [facility] Last Admin: 12/04/16 10:14 Dose: 2.5 mg Benzonatate (Tessalon Cap*) 200 mg PO TID [facility] Last Admin: 12/04/16 14:10 Dose: 200 mg Carvedilol (Coreg Tab*) 12.5 mg PO TID [facility] Last Admin: 12/04/16 14:10 Dose: 12.5 mg Doxycycline Hyclate (Vibramycin Cap(*)) 100 mg PO BID [facility] Last Admin: 12/04/16 09:12 Dose: 100 mg Guaifenesin (Robitussin*) 5 ml PO Q6H PRN PRN Reason: COUGH Last Admin: 12/04/16 09:12 Dose: 5 ml Oxycodone/Acetaminophen (Percocet 5/325 Tab*) 1 tab PO Q4H PRN PRN Reason: PAIN - MILD TO MODERATE Tramadol HCl (Ultram*) 50 mg PO Q6HR [facility] Last Admin: 12/04/16 11:42 Dose: 50 mg Vital Signs 12/04/16 12/04/16 12/04/16 04:02 06:04 07:42 Temperature 98.4 F 98.7 F Pulse Rate 71 71 Respiratory 20 20 16 Rate Blood Pressure 111/44 127/55 (mmHg) O2 Sat by Pulse 95 95 Oximetry Oxygen Devices in Use Now: None Appearance: Pleasant elderly lady lying in bed in [facility]. Eyes: No Scleral Icterus Ears/Nose/Mouth/Throat: Mucous Membranes Moist Neck: Trachea Midline Respiratory: Symmetrical Chest Expansion and Respiratory Effort, Clear to Auscultation Cardiovascular: RRR - Normal S1 and S2 Abdominal: NL Sounds; No Tenderness; No Distention Extremities: No Edema Neurological: Alert and Oriented x 3, NL Muscle Strength and Tone Lines/Tubes/Other Access: Clean, Dry and Intact Peripheral IV Nutrition: Taking PO's Result Diagrams: 12/04/16 05:09 12/04/16 05:09 Assess/Plan/Problems-Billing Assessment: Mrs. Austin is a 76yo F with PMH of HTN, HLD, s/p pacer, arthritis, osteoporosis , s/p hip replacement, who presented to ED with c/o 2 weeks of fatigue, weakness , intermittent fevers, found to have worsening anemia. - Patient Problems (1) Fever Comment: - Etiology unclear at this time - most likely bronchitis, less likely UTI. - Lyme serology 11/26/16 showed positive IgG, but negative IgM. - Erlichia/Anaplasma pending. - Blood and urine cultures show no growth so far. - CxR showed no infiltrate. - Continue doxycycline for now. - ID consult appreciated. (2) Anemia Comment: - As per our records, patient has been anemic at least since 2011, but those CBCs were checked during surgical admissions. - Anemia w/u shows stool negative for blood (stools are black likely because of the iron she's taking). Iron level is low at <15, but ferritin is high at 322, with normal folate and B12. - Hb is lower today after receiving 1 PRBC last night - LDH was normal. Drop is likely dilutional. - Hematology consult appreciated - s/p BM biopsy 12/13/16. - GI input appreciated - plan for EGD today. If negative, will pursue colonoscopy as inpatient or outpatient. (3) Thrombocytopenia Comment: - Likely associated with current infection. - Trending up. (4) HTN (hypertension) Comment: - Controlled. - Continue Coreg. (5) DVT prophylaxis Comment: - SCDs. (6) Full code status Status and Disposition: Inpatient.
[2016-12-04] MEDS ORDERED: Meperidine SYRINGE* 50 MG/ML ONE (16:05)
[2016-12-04] MEDS ORDERED: Midazolam* 1 MG/ML 10 ML VIAL (10 MG) ONE (16:05)
[2016-12-04 19:10] LABS: Ferritin 273.6 ng/mL (11-307)
--- NOTE | 2016-12-05 01:59 | PRO ---
DATE: 12/04/16 - ROOM #421 REFERRING PROVIDER: RED Alonzo * PROCEDURE: Upper gastrointestinal endoscopy and gastric greater curvature biopsy and CLOtest. INDICATION: This 76-year-old woman admitted with shortness of breath, cough, fatigue, and found to be anemic with hemoglobin of 7.9, MCV 93. She was heme negative, B12 499, Fe < 15, ferritin 273.6,LDH 163 erythropoietin 78. She is undergoing a wide-spread evaluation. She has been told 10 years past (over decades) to take iron, but has never really done so in any systemic fashion. Indeed, she may have only taken it for a few days. At this time, she has been troubled mostly by a cough and fatigue. She has not had any aspirin or NSAIDs. She has not had any dark stools until starting iron about a week ago. She took it for 4 days and said she had an explosive bowel movement. [place] with rescue animals including a house pig. ENDOSCOPIST: Dr Persaud. MEDICATION: Midazolam 5, meperidine 25 with a fair amount of gagginess. FINDINGS: She is an elderly woman, in no overt distress with no coughing or shortness of breath prior to the endoscopy. Procedure induced a lot of gagging , but nothing else. Oxygenation remained 89% and above. EGD: Larynx - minimal views. Esophagus - easily entered and the mucosa is normal in the upper and mid esophagus. EG junction is loose and a little bit of erythema stripes for a centimeter or two. There are no Mallory's changes and no deep erosions or ulcers. There is a short hiatal hernia. Stomach - a minimal punctate erythema and granular change in the distal body and antrum. There are no overt scars or ulcers. A CLOtest taken. There was no bleeding seen. Duodenum - normal pylorus, bulb, and second through fourth portions. IMPRESSION: 1. Small hiatal hernia - could certainly be asymptomatic in a person eating a very prudent diet and maintaining a slender build. 2. Gastritis - CLOtest pending. 3. Anemia - another stool specimen was sent for Hemoccult and B12 and an iron panel added. Addendum: stool hemoccult (second) negative and Clotest negative [id number]/[facility] #: [id number] [facility]
[2016-12-05] MEDS: Albuterol 2.5 MG/3 ML NEB.SOL* (0.083%) INH SCH ×3 (02:00→19:15)
[2016-12-05] MEDS: guaiFENesin LIQ* 100 MG/5 ML UDC PO PRN (03:38)
[2016-12-05] MEDS: traMADol TAB* 50 MG PO SCH ×3 (05:52→17:28)
[2016-12-05 06:29] LABS: Hematocrit 26 % (35-47); Hemoglobin 8.3 g/dl (12.0-16.0); Mean Corpuscular HGB Conc 33 g/dl (31-36); Mean Corpuscular Hemoglobin 30 pg (27-31); Mean Corpuscular Volume 93 fL (80-97); Mean Platelet Volume 8 um3 (7.4-10.4); Red Blood Count 2.76 10^6/ul (4.0-5.4); Red Cell Distribution Width 15 % (10.5-15); White Blood Count 7.4 10^3/ul (3.5-10.8)
[2016-12-05 06:30] LABS: Add Diff/Slide Review? Manual Diff Added; Comments Flag Yes
[2016-12-05 06:56] LABS: Immature Granulocytes 3 % (0-9); Neutrophil % 75 % (38-83); RBC Morphology Normal (Normal)
[2016-12-05 08:08] LABS: Total Iron Binding Capacity 216 mcg/dL (250-450); Transferrin 154 mg/dL (203-362)
[2016-12-05 08:44] LABS: Iron < 15 ug/dL (50-212)
[2016-12-05] MEDS: DOXYcycline CAP(*) 100 MG PO SCH ×2 (08:47→19:52)
[2016-12-05] MEDS: Benzonatate CAP* 100 MG PO SCH ×3 (08:47→19:53)
[2016-12-05] MEDS: Carvedilol TAB* 6.25 MG PO SCH ×3 (08:47→19:53)
--- NOTE | 2016-12-05 10:24 | PN ---
Subjective Date of Service: 12/05/16 Interval History: pt c/o dry cough , that is getting better. Family History: Unchanged from Admission Social History: Unchanged from Admission Past Medical History: Unchanged from Admission Objective Active Medications: Acetaminophen (Tylenol Tab*) 650 mg PO Q4H PRN PRN Reason: FEVER Last Admin: 12/04/16 23:36 Dose: 650 mg Albuterol (Ventolin 2.5 Mg/3 Ml Neb.Sofiya*) 2.5 mg INH Q8H [facility] Last Admin: 12/05/16 02:00 Dose: Not Given Benzonatate (Tessalon Cap*) 200 mg PO TID [facility] Last Admin: 12/05/16 08:47 Dose: 200 mg Carvedilol (Coreg Tab*) 12.5 mg PO TID [facility] Last Admin: 12/05/16 08:47 Dose: 12.5 mg Doxycycline Hyclate (Vibramycin Cap(*)) 100 mg PO BID [facility] Last Admin: 12/05/16 08:47 Dose: 100 mg Guaifenesin (Robitussin*) 5 ml PO Q6H PRN PRN Reason: COUGH Last Admin: 12/05/16 03:38 Dose: 5 ml Oxycodone/Acetaminophen (Percocet 5/325 Tab*) 1 tab PO Q4H PRN PRN Reason: PAIN - MILD TO MODERATE Tramadol HCl (Ultram*) 50 mg PO Q6HR [facility] Last Admin: 12/05/16 05:52 Dose: 50 mg Vital Signs 12/04/16 12/04/16 12/04/16 11:42 13:42 14:18 Temperature 98.4 F Pulse Rate 70 Respiratory 16 16 16 Rate Blood Pressure 113/53 (mmHg) O2 Sat by Pulse 97 Oximetry 12/04/16 12/04/16 12/04/16 17:19 17:53 18:19 Temperature 98.3 F Pulse Rate 110 72 Respiratory 16 16 16 Rate Blood Pressure 114/49 (mmHg) O2 Sat by Pulse 98 93 Oximetry 12/04/16 12/04/16 12/04/16 19:24 20:00 20:19 Temperature 98.2 F Pulse Rate 43 Respiratory 22 20 18 Rate Blood Pressure 115/43 (mmHg) O2 Sat by Pulse 99 Oximetry 12/04/16 12/04/16 12/04/16 22:19 23:35 23:36 Temperature 100.5 F Pulse Rate 83 Respiratory 17 19 20 Rate Blood Pressure 123/46 (mmHg) O2 Sat by Pulse 93 Oximetry 12/05/16 12/05/16 12/05/16 01:35 03:41 03:48 Temperature 98.4 F 98.6 F Pulse Rate 151 75 Respiratory 17 20 20 Rate Blood Pressure 110/51 106/48 (mmHg) O2 Sat by Pulse 96 97 Oximetry 12/05/16 12/05/16 05:52 07:51 Temperature Pulse Rate Respiratory 18 16 Rate Blood Pressure (mmHg) O2 Sat by Pulse Oximetry Oxygen Devices in Use Now: None Appearance: 76 yo F in nAd, AAOx3 Eyes: No Scleral Icterus, PERRLA Ears/Nose/Mouth/Throat: NL Teeth, Lips, Gums, Mucous Membranes Moist Neck: NL Appearance and Movements; NL JVP, Trachea Midline Respiratory: Symmetrical Chest Expansion and Respiratory Effort, - - coarse breath sounds at b/l mid lungs Cardiovascular: NL Sounds; No Murmurs; No JVD, RRR Abdominal: NL Sounds; No Tenderness; No Distention Lymphatic: No Cervical Adenopathy Extremities: No Edema Skin: No Rash or Ulcers, No Nodules or Sclerosis Neurological: Alert and Oriented x 3, NL Muscle Strength and Tone Result Diagrams: 12/05/16 06:19 12/04/16 05:09 Microbiology and Other Data: Microbiology 12/01/16 21:15 Stool Occult Blood (SHEMAR) - Final Stool Assess/Plan/Problems-Billing Assessment: Mrs. Austin is a 76yo F with PMH of HTN, HLD, s/p pacer, arthritis, osteoporosis , s/p hip replacement, who presented to ED with c/o 2 weeks of fatigue, weakness , intermittent fevers, found to have worsening anemia. - Patient Problems (1) Anemia Comment: - As per our records, patient has been anemic at least since 2011, but those CBCs were checked during surgical admissions. - Anemia w/u shows stool negative for blood (stools are black likely because of the iron she's taking, but heme neg). Iron level is low at <15, but ferritin is high at 322, with normal folate and B12. -s/p 4 U PRBC transfusion during current hospital stay - Hematology consult appreciated - s/p BM biopsy 12/13/16- pending - GI input appreciated - EGD on 12/04/16 showed hiatal hernia. Spoke with pt abput the need for colonoscopy as outpatient. (2) Fever Comment: - Etiology unclear at this time - most likely bronchitis, Pertussis antibody ordered - Lyme serology 11/26/16 showed positive IgG, but negative IgM. Overall negative for acute infection - Erlichia/Anaplasma neg - Blood and urine cultures show no growth so far. - CxR showed no infiltrate. - Continue doxycycline for now. Plan to d/c home on doxy in aM - ID consult appreciated. (3) Thrombocytopenia Comment: - Likely associated with current infection. - Trending up. (4) HTN (hypertension) Comment: - Controlled. - Continue Coreg. (5) DVT prophylaxis Comment: - SCDs., no anticoagulation due to anemia and thrombocytopenia Status and Disposition: Inpatient.
[2016-12-05] MEDS: oxyCODONE/Acetamin 5/325 MG* TAB PO PRN ×2 (10:32→22:53)
[2016-12-05 11:54] LABS: EBV Capsid Ag IgG Ab Positive (Negative); EBV Capsid Ag IgM Ab Negative (Negative)
[2016-12-05] MEDS: Acetaminophen TAB* 325 MG PO PRN (19:52)
[2016-12-06] MEDS: traMADol TAB* 50 MG PO SCH ×3 (01:03→12:19)
[2016-12-06] MEDS: Albuterol 2.5 MG/3 ML NEB.SOL* (0.083%) INH SCH ×2 (02:37→11:40)
[2016-12-06] MEDS: DOXYcycline CAP(*) 100 MG PO SCH (08:07)
[2016-12-06] MEDS: Benzonatate CAP* 100 MG PO SCH (08:07)
[2016-12-06] MEDS: Carvedilol TAB* 6.25 MG PO SCH (08:08)
[2016-12-06 08:13] VITALS: BP 132/56
[2016-12-06] MEDS: oxyCODONE/Acetamin 5/325 MG* TAB PO PRN (12:17)
--- NOTE | 2016-12-07 06:57 | DS ---
CC: Dr. Cannon; Dr. Persaud; Dr. Harp; Dr. Hernandez; RED Alonzo; Dr. Otilia Perkins * DISCHARGE SUMMARY: DATE OF ADMISSION: 12/01/16 DATE OF DISCHARGE: 12/06/16 PRIMARY CARE PROVIDERS: RED Alonzo and Dr. Otilia Perkins from [facility]. DISCHARGE DIAGNOSES: 1. Febrile illness. 2. Normocytic anemia. SECONDARY DIAGNOSES: 1. Recent diagnosis of Lyme that actually turned out to be a remote history of Lyme and not acute infection. 2. History of hip surgery. 3. History of tubal ligation. 4. History of arthritis. 5. Hyperlipidemia. 6. Hypertension. 7. Chronic kidney disease. 8. History of pacemaker placement. MEDICATIONS AT DISCHARGE: Include: 1. Doxycycline 100 mg p.o. b.i.d. for a total of 10 days. 2. Coreg 12.5 mg three times a day. 3. Ferrous sulfate 325 mg 4 times a day. 4. Multivitamin 1 to 2 tablets daily. 5. Simvastatin 10 mg at bedtime. 6. Ultram 50 mg every 6 hours p.r.n. 7. Oxycodone with acetaminophen 5/325 mg 1 tablet every 4 hours p.r.n. CONSULTATIONS DURING THE HOSPITAL STAY: Included: 1. Dr. Cannon from Oncology and Hematology. 2. Dr. Hernandez, Infectious Diseases. 3. Dr. Harp and Dr. Persaud, Gastroenterology. LABORATORY DATA: Obtained on 12/05/16 showed white blood cell count of 7.4, hemoglobin of 8.3, hematocrit of 26, and platelets of 108. Sodium was 136, potassium 4.3, chloride 111, carbon dioxide 21, BUN 24, and creatinine 1.03. The patient's iron study showed iron level below 15, TIBC of 307, percent iron saturation 5. Erythropoietin was high at 78.2. LDH was 163. Ferritin was 321. Total protein was 4.6, albumin 2.3. Alpha-1 globulins were high at 0.5 and beta-1 globulin low at 0.5. The SPEP impression showed small abnormality in the gamma fraction. Vitamin B12 level was 612, folate above 20. TSH was 1.83 on 04/12/16 from past medical records. Urinalysis obtained on 12/01/16 showed +3 esterase, +2 white blood cells, absent bacteria. Microbiology showed negative urine cultures. Stool occult blood was negative on 12/04/16. CLOtest obtained from gastric tissue was also negative. Sputum showed yeast and normal rell. Lyme disease serology was positive for IgG, negative for IgM. 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 Blood smear for parasites was negative. EBV IgM was negative and IgG was positive. It was consistent with past Ashley-Pulliam virus infection. Ehrlichia PCRs were negative. Anaplasma DNA/PCR was also negative. Studies pending at the time of this dictation is Bordetella pertussis antigen as well as bone marrow pathology from biopsy. PROCEDURES DURING THE HOSPITAL STAY: Included on 12/03/16, Dr. Cannon performed bone marrow aspiration, pathology is pending. On 12/04/16, upper endoscopy was performed by Dr. Persaud, which showed small hiatal hernia, CLOtest was negative. Stool specimen for Hemoccult was negative. HOSPITALIZATION COURSE: Ms. Austin is a 76-year-old female, who presented to the hospital complaining of myalgias, generalized weakness, low-grade fever, and cough for 2 to 3 weeks. As per her primary care provider, she was diagnosed with possible Lyme approximately a week prior to her presentation to our ED and treated with amoxicillin. She was admitted to our facility and she was noted to have normocytic anemia with hemoglobin ranging in the 8 number. It has to be noted that the patient has had anemia with hemoglobin between 10 and [address] back to 2011. The patient's MCV had been normocytic. The patient was noted to have low iron levels, but also low normal TIBC level and a possibility of iron deficiency anemia and anemia of chronic disease or anemia due to ongoing infection was entertained. Dr. Hernandez saw patient from Infectious Diseases and recommended anaplasma, Ehrlichia workup. Also, Lyme serology was performed and confirmed that the patient had past Lyme infection, but not current Lyme infection. All the other tests as mentioned above were negative. The patient was treated with doxycycline throughout her hospital stay with good results with the cough slowly improving over the course of several days. Nevertheless, she still continues to have breakthrough fevers and the last one was documented approximately 24 hours prior to her discharge. For her anemia, Dr. Cannon as well as Dr. Persaud were consulted. Dr. Cannon recommended a bone marrow biopsy that was performed as mentioned above and result is still pending. Dr. Persaud performed an upper endoscopy that was basically unremarkable apart from hiatal hernia. Dr. Persaud was not sure if colonoscopy is going to be of any gain and at this point did not recommend it after discharge. The patient has history of chronic kidney disease and her creatinine had ranged in- between 1.5 to 1.03 at the time of discharge. Once again, she did slowly improve with her cough. At this point, the suspicion is that most likely her cough and joint pains are due to an atypical infection and at this point, she is recommended to continue doxycycline. Once again, Bordetella pertussis antigen is still pending at the time of dictation. In regards to her anemia is dating back to 2011, that needs to be followed up with Dr. Cannon. If the patient continues to be febrile, she is recommended to follow up with Dr. Hernandez in 1 to 2 weeks after discharge. She is also recommended to follow up with Gastroenterology. It is questionable at this point if colonoscopy will be recommended by can slider as per the further workup. Her stool was negative with Hemoccult prior to discharge. By the time of discharge, the patient felt much better. She is going to be discharged home to follow up with her primary care provider also in 4 to 7 days. PHYSICAL EXAMINATION: At the time of discharge, blood pressure of 132/56, heart rate of 98 and regular, respiratory rate 16, oxygen saturation 95% on room air, temperature 99.8. General: The patient is a very pleasant 76-year- old female, who is not in acute distress. Alert, awake, and oriented x3. HEENT : Head: Atraumatic, normocephalic. Eyes: Pupils equal and reactive to light and accommodation. Oropharynx clear. Mucosa moist. Neck: Supple. No JVD. No bruits bilaterally. Cardiovascular: Regular rate and rhythm. No murmur. Respiratory: Clear to auscultation bilaterally. Abdomen: Soft, nontender. Bowel sounds present in all 4 quadrants. Extremities: There is trace ankle edema bilaterally. Pulses are +2 bilaterally. There is no clubbing or cyanosis. On evaluation of the skin, the patient has some venous stasis changes in distal bilateral lower extremities. No rashes otherwise noted. Neuro Evaluation: Speech clear. Cranial nerves II through XII grossly intact. Motor strength is 5/5 bilaterally. Please note this is a short summary of the patient's complicated hospitalization. Please refer to further medical records for details. TIME SPENT: Approximately 40 minutes was spent on the patient's discharge. [id number]/[facility] #: [id number] MTDD
== END 2016-12-06 13:50 | disposition home or self-care (01) | DRG 813 ==
LOC: ED 14:31 → MEDTELE 20:43 → OBSVTOIN 12-02 15:28 → MED 12-02 23:24
PROVIDERS: ADMIT Pediatrics; ATTEND Internal Medicine
PROC: 07DR3ZX Extraction of Iliac Bone Marrow, Percutaneous Approach, Diagnostic (ICD-10-PCS; 2016-12-03)
PROC: 0DB68ZX Excision of Stomach, Via Natural or Artificial Opening Endoscopic, Diagnostic (ICD-10-PCS; principal; 2016-12-04)
DX: D69.59 Other secondary thrombocytopenia (principal); D64.9 Anemia, unspecified; I44.7 Left bundle-branch block, unspecified; I12.9 Hypertensive chronic kidney disease with stage 1 through stage 4 chronic kidney disease, or unspecified chronic kidney disease; R50.9 Fever, unspecified; E78.5 Hyperlipidemia, unspecified; J40 Bronchitis, not specified as acute or chronic; N39.3 Stress incontinence (female) (male); N18.9 Chronic kidney disease, unspecified; K29.70 Gastritis, unspecified, without bleeding; K44.9 Diaphragmatic hernia without obstruction or gangrene; M19.90 Unspecified osteoarthritis, unspecified site; M81.0 Age-related osteoporosis without current pathological fracture; Z79.1 Long term (current) use of non-steroidal anti-inflammatories (NSAID); Z95.0 Presence of cardiac pacemaker; Z79.891 Long term (current) use of opiate analgesic; Z79.899 Other long term (current) drug therapy; Z88.2 Allergy status to sulfonamides; Z88.8 Allergy status to other drugs, medicaments and biological substances; Z82.49 Family history of ischemic heart disease and other diseases of the circulatory system; Z80.9 Family history of malignant neoplasm, unspecified; Z96.643 Presence of artificial hip joint, bilateral
CPT/HCPCS: 36415; 71010; 80048; 80053; 81003; 81015; 82272; 82607; 82668; 82728; 82746; 83010; 83540; 83550; 83605; 83615; 84155; 84165; 84484; 85025; 85045; 85060; 85097; 85610; 85730; 86140; 86334; 86615; 86664; 86665; 86850; 86900; 86901; 86922; 87015; 87070; 87077; 87086; 87205; 87207; 87798; 88184; 88185; 88187; 88188; 88271; 88305; 88311; 88313; 88341; 88342; 88360; 88364; 88365; 93005; 94640; 94760; 99156; 99157; 99223; 99232; A9270-GY; J0696; J2250; J2310; P9040

== ENCOUNTER 2016-12-17 15:26 | Emergency (ER) | payer MEDICARE ==
[2016-12-17 16:47] LABS: Hematocrit 26 % (35-47); Hemoglobin 8.6 g/dl (12.0-16.0); Mean Corpuscular HGB Conc 33 g/dl (31-36); Mean Corpuscular Hemoglobin 29 pg (27-31); Mean Corpuscular Volume 88 fL (80-97); Mean Platelet Volume 8 um3 (7.4-10.4); Red Blood Count 2.99 10^6/ul (4.0-5.4); Red Cell Distribution Width 16 % (10.5-15); White Blood Count 7.7 10^3/ul (3.5-10.8)
[2016-12-17 16:49] LABS: Add Diff/Slide Review? Manual Diff Added; Comments Flag Yes
[2016-12-17 17:05] LABS: ALT 16 U/L (7-52); AST 28 U/L (13-39); Albumin 2.9 g/dL (3.2-5.2); Alkaline Phosphatase 268 U/L (34-104); Anion Gap 8 mmol/L (2-11); BUN/Creatinine Ratio 27.9 (8-20); Blood Urea Nitrogen 43 mg/dL (6-24); C Reactive Protein 156.03 mg/L (< 5.00); CO2 Carbon Dioxide 27 mmol/L (22-32); Calcium 8.6 mg/dL (8.6-10.3); Chloride 98 mmol/L (101-111); Creatine Kinase 10 U/L (10-223); EGFR African American 42.2 (>60); EGFR Non-African American 32.8 (>60); Globulin 2.8 g/dL (2-4); Glucose 157 mg/dL (70-100); Lipase 11 U/L (11.0-82.0); Magnesium 2.3 mg/dL (1.9-2.7); Potassium 4.9 mmol/L (3.5-5.0); Sodium 133 mmol/L (133-145); Total Protein 5.7 g/dL (6.4-8.9)
[2016-12-17 17:06] LABS: Troponin I 0.01 ng/mL (<0.04)
[2016-12-17 17:14] LABS: Eosinophils % 1 % (0-6); Immature Granulocytes 3 % (0-9); Neutrophil % 73 % (38-83)
[2016-12-17 17:15] LABS: Polychromasia 1+
[2016-12-17 17:16] LABS: Add Path Review? YES; Hypochromasia 1+
[2016-12-17 17:26] LABS: Acetaminophen < 15 mcg/mL; Alcohol < 10 mg/dL (<10)
--- NOTE | 2016-12-17 17:30 | RAD ---
HISTORY: Weakness, short of breath COMPARISONS: December 01, 2016 VIEWS:1: Single frontal portable view of the chest at 4:30 PM FINDINGS: LINES AND TUBES: There is a right-sided pacemaker. CARDIOMEDIASTINAL SILHOUETTE: The cardiomediastinal silhouette is normal for portable technique. PLEURA: The costophrenic angles are sharp. No pleural abnormalities are noted. LUNG PARENCHYMA: There is hyperinflation. ABDOMEN: The upper abdomen is clear. There is no subphrenic gas. BONES AND SOFT TISSUES: There is post surgical change to left shoulder IMPRESSION: COPD. NO ACTIVE CARDIOPULMONARY DISEASE.
[2016-12-17 17:35] LABS: TSH (Thyroid Stimulating Horm) 1.46 mcIU/mL (0.34-5.60)
[2016-12-17] MEDS ORDERED: NS 0.9% 1000 ML* 1,000 ML IV ONE (18:12)
[2016-12-17] MEDS ORDERED: Iodixanol* (CONTRAST) 320 MG/ML 100 ML SDV IV ONE (18:30)
--- NOTE | 2016-12-17 19:17 | ED ---
Tim Sampson Benjamin, scribed for Pee Lam MD on 12/17/16 at 1810 . Complex/Multi-Sys Presentation - HPI Summary HPI Summary: 76yo female who just finished her last dose of Doxycycline this Thursday for Lyze disease states that Doxycycline didnt change anything. Pt is reports feeling crappy, fatigued, low grade fever, and mild SOB. Pt has bronchitis and also has productive cough with cream-color sputum. No CP or swelling/pain in legs. Pt has lots of neighbors with Lyze disease. Pt's partner also reports that pt has'nt been getting out of bed for 3 weeks and is concerned. - History Of Current Complaint Chief Complaint: EDWeakness Time Seen by Provider: 12/17/16 17:41 Hx Obtained From: Patient Onset/Duration: Lasting Weeks - 1 week, Still Present Timing: Constant Severity Currently: Mild Severity Initially: Mild Location: Negative Associated Signs And Symptoms: Positive: Weakness, SOB, Cough. Negative: Chest Pain - Allergies/Home Medications Allergies/Adverse Reactions: Allergies Allergy/AdvReac Type Severity Reaction Status Date / Time Baclofen AdvReac Fatigue Verified 12/17/16 15:29 Sulfa Antibiotics AdvReac Nausea And Verified 12/17/16 15:29 Vomiting PMH/Surg Hx/FS Hx/Imm Hx Endocrine/Hematology History: Comment Only: Other Endocrine/Hematological Disorders - anemia Cardiovascular History: Reports: Hx Hypertension, Hx Pacemaker/ICD Respiratory History: Denies: Hx Asthma, Hx Chronic Obstructive Pulmonary Disease (COPD) Musculoskeletal History: Reports: Hx Arthritis - GENERAL Sensory History: Reports: Hx Contacts or Glasses Denies: Hx Hearing Aid Opthamlomology History: Reports: Hx Contacts or Glasses Psychiatric History: Reports: Hx Anxiety - R/T SURGERY - Surgical History Surgery Procedure, Year, and Place: RIGHT HIP REPLACEMENT X2 [facility] [place] 2011. LEFT HIP REPLACEMENT 2009. LEFT ORIF UPPER ARM 2010. TUBALLIGATION 50 YEARS AGO Hx Anesthesia Reactions: No Infectious Disease History: No Infectious Disease History: Denies: Hx Clostridium Difficile, Hx Hepatitis, Hx Human Immunodeficiency Virus (HIV), Hx of Known/Suspected MRSA, Hx Shingles, Hx Tuberculosis, Hx Known/ Suspected VRE, Hx Known/Suspected VRSA, History Other Infectious Disease, Traveled Outside the [place] in Last 30 Days - Family History Known Family History: Positive: Hypertension - Social History Occupation: Retired Lives: With Family Alcohol Use: None Substance Use Type: Reports: None Smoking Status (MU): Never Smoked Tobacco Review of Systems Positive: Fever, Fatigue Eyes: Negative ENT: Negative Cardiovascular: Negative Negative: Chest Pain Positive: Shortness Of Breath, Cough Gastrointestinal: Negative Genitourinary: Negative Musculoskeletal: Negative Skin: Negative Positive: Weakness Psychological: Normal All Other Systems Reviewed And Are Negative: Yes Physical Exam Triage Information Reviewed: Yes Vital Signs On Initial Exam: Initial Vitals Temp Pulse Resp BP Pulse Ox 97.5 F 81 16 84/48 99 12/17/16 15:29 12/17/16 15:29 12/17/16 15:29 12/17/16 15:29 12/17/16 15:29 Vital Signs Reviewed: Yes Appearance: Positive: Well-Appearing, No Pain Distress, Well-Nourished Head/Face: Positive: Normal Head/Face Inspection Eyes: Positive: Normal ENT: Positive: Normal ENT inspection Neck: Positive: Supple, Nontender Respiratory/Lung Sounds: Positive: Clear to Auscultation, Breath Sounds Present Cardiovascular: Positive: RRR, Pulses are Symmetrical in both Upper and Lower Extremities Abdomen Description: Positive: Nontender, Soft Bowel Sounds: Positive: Present Musculoskeletal: Positive: Strength/ROM Intact Neurological: Positive: Sensory/Motor Intact, Alert, Oriented to Person Place, Time Psychiatric: Positive: Affect/Mood Appropriate - [place] Coma Scale Coma Scale Total: 15 Diagnostics - Vital Signs Vital Signs Temp Pulse Resp BP Pulse Ox 12/17/16 17:30 71 96/44 99 12/17/16 17:00 72 82/47 99 12/17/16 16:35 69 99/37 90 12/17/16 16:30 73 76/41 100 12/17/16 16:00 77 104/46 99 12/17/16 15:44 75 14 99 12/17/16 15:42 110/45 12/17/16 15:36 97.5 F 81 16 84/48 97 12/17/16 15:29 97.5 F 81 16 84/48 99 - Laboratory Lab Results: Lab Results 12/17/16 12/17/16 12/17/16 Range/Units 16:37 16:37 16:37 WBC 7.7 (3.5-10.8) 10^3/ul RBC 2.99 L (4.0-5.4) 10^6/ul Hgb 8.6 L (12.0-16.0) g/dl Hct 26 L (35-47) % MCV 88 (80-97) fL MCH 29 (27-31) pg MCHC 33 (31-36) g/dl RDW 16 H (10.5-15) % Plt Count 129 L (150-450) 10^3/ul MPV 8 (7.4-10.4) um3 Immature Gran % (Auto) 3 (0-9) % Absolute Neuts (auto) 5.9 (1.5-7.7) 10^3/ul Absolute Lymphs (auto) 0.8 L (1.0-4.8) 10^3/ul Absolute Monos (auto) 0.8 (0-0.8) 10^3/ul Absolute Eos (auto) 0.1 (0-0.6) 10^3/ul Absolute Basos (auto) 0.2 (0-0.2) 10^3/ul Absolute Nucleated RBC Not Reportable Neutrophils % 73 (38-83) % Band Neutrophils % 3 (0-8) % Lymphocytes % 11 L (25-47) % Monocytes % 10 (0-13) % Eosinophils % 1 (0-6) % Basophils % 2 (0-2) % Normal RBC Morphology Not Reportable Polychromasia 1+ Hypochromasia 1+ Hem Pathologist Commnt Pending INR (Anticoag Therapy) 1.14 H (0.89-1.11) APTT 27.4 (26.0-36.3) seconds D-Dimer, Quantitative 344 H (Less Than 230) ng/mL Sodium 133 (133-145) mmol/L Potassium 4.9 (3.5-5.0) mmol/L Chloride 98 L (101-111) mmol/L Carbon Dioxide 27 (22-32) mmol/L Anion Gap 8 (2-11) mmol/L BUN 43 H (6-24) mg/dL Creatinine 1.54 H (0.51-0.95) mg/dL Est GFR ( Amer) 42.2 (>60) Est GFR (Non-Af Amer) 32.8 (>60) BUN/Creatinine Ratio 27.9 H (8-20) Glucose 157 H (70-100) mg/dL Lactic Acid (0.5-2.0) mmol/L Calcium 8.6 (8.6-10.3) mg/dL Magnesium 2.3 (1.9-2.7) mg/dL Total Bilirubin 0.80 (0.2-1.0) mg/dL AST 28 (13-39) U/L ALT 16 (7-52) U/L Alkaline Phosphatase 268 H (34-104) U/L Total Creatine Kinase 10 (10-223) U/L CK-MB (CK-2) 1.2 (0.6-6.3) ng/mL Troponin I 0.01 (<0.04) ng/mL C-Reactive Protein 156.03 H (< 5.00) mg/L B-Natriuretic Peptide ( - 100) pg/mL Total Protein 5.7 L (6.4-8.9) g/dL Albumin 2.9 L (3.2-5.2) g/dL Globulin 2.8 (2-4) g/dL Albumin/Globulin Ratio 1.0 (1-3) Lipase 11 (11.0-82.0) U/L TSH 1.46 (0.34-5.60) mcIU/mL Acetaminophen < 15 mcg/mL Serum Alcohol < 10 (<10) mg/dL 12/17/16 12/17/16 Range/Units 16:37 16:37 WBC (3.5-10.8) 10^3/ul RBC (4.0-5.4) 10^6/ul Hgb (12.0-16.0) g/dl Hct (35-47) % MCV (80-97) fL MCH (27-31) pg MCHC (31-36) g/dl RDW (10.5-15) % Plt Count (150-450) 10^3/ul MPV (7.4-10.4) um3 Immature Gran % (Auto) (0-9) % Absolute Neuts (auto) (1.5-7.7) 10^3/ul Absolute Lymphs (auto) (1.0-4.8) 10^3/ul Absolute Monos (auto) (0-0.8) 10^3/ul Absolute Eos (auto) (0-0.6) 10^3/ul Absolute Basos (auto) (0-0.2) 10^3/ul Absolute Nucleated RBC Neutrophils % (38-83) % Band Neutrophils % (0-8) % Lymphocytes % (25-47) % Monocytes % (0-13) % Eosinophils % (0-6) % Basophils % (0-2) % Normal RBC Morphology Polychromasia Hypochromasia Hem Pathologist Commnt INR (Anticoag Therapy) (0.89-1.11) APTT (26.0-36.3) seconds D-Dimer, Quantitative (Less Than 230) ng/mL Sodium (133-145) mmol/L Potassium (3.5-5.0) mmol/L Chloride (101-111) mmol/L Carbon Dioxide (22-32) mmol/L Anion Gap (2-11) mmol/L BUN (6-24) mg/dL Creatinine (0.51-0.95) mg/dL Est GFR ( Amer) (>60) Est GFR (Non-Af Amer) (>60) BUN/Creatinine Ratio (8-20) Glucose (70-100) mg/dL Lactic Acid 1.3 (0.5-2.0) mmol/L Calcium (8.6-10.3) mg/dL Magnesium (1.9-2.7) mg/dL Total Bilirubin (0.2-1.0) mg/dL AST (13-39) U/L ALT (7-52) U/L Alkaline Phosphatase (34-104) U/L Total Creatine Kinase (10-223) U/L CK-MB (CK-2) (0.6-6.3) ng/mL Troponin I (<0.04) ng/mL C-Reactive Protein (< 5.00) mg/L B-Natriuretic Peptide 232 H ( - 100) pg/mL Total Protein (6.4-8.9) g/dL Albumin (3.2-5.2) g/dL Globulin (2-4) g/dL Albumin/Globulin Ratio (1-3) Lipase (11.0-82.0) U/L TSH (0.34-5.60) mcIU/mL Acetaminophen mcg/mL Serum Alcohol (<10) mg/dL Result Diagrams: 12/17/16 16:37 12/17/16 16:37 Lab Statement: Any lab studies that have been ordered have been reviewed, and results considered in the medical decision making process. - EKG 1747 Cardiac Rate: NL - 75bpm EKG Interpretation: paced rhythm Complex Multi-Symp Course/Dx Course Of Treatment: Reviewed pts medication and allergy lists. Blood pressure noted. CTA/DISPOSITION PENDING AT SHIFT CHANGE - Diagnoses Provider Diagnoses: Weakness, Dyspnea Discharge - Discharge Plan Condition: Stable Disposition: OTHER Discharge Disposition Comment: . Referrals: Session Matt MARTINEZ [Primary Care Provider] - The documentation as recorded by the Tim hurd Benjamin accurately reflects the service I personally performed and the decisions made by me, Pee Lam MD.
--- NOTE | 2016-12-17 19:31 | RAD ---
HISTORY: Positive d-dimer COMPARISONS: None relevant TECHNIQUE: Multiple transverse and longitudinal ultrasound images were obtained of the bilateral lower extremities from the level of the common femoral vein inferiorly through to the infrapopliteal veins using grayscale, color Doppler, and spectral Doppler imaging with and without compression and with augmentation. FINDINGS: VEINS: The venous system of the bilateral lower extremities is compressible throughout its course, with normal flow on color Doppler imaging and normal response to augmentation on spectral Doppler imaging. SOFT TISSUES: Unremarkable. OTHER FINDINGS: None. IMPRESSION: NO RIGHT LOWER EXTREMITY DEEP VEIN THROMBOSIS. NO LEFT LOWER EXTREMITY DEEP VEIN THROMBOSIS
--- NOTE | 2016-12-17 19:59 | RAD ---
HISTORY: Shortness of breath, positive d-dimer COMPARISONS: None TECHNIQUE: Multiple contiguous axial CT scans of the chest were obtained after the administration of nonionic intravenous contrast, timed to the pulmonary arterial phase of contrast enhancement.. Coronal and sagittal multiplanar reformations are also submitted for review. FINDINGS: NECK AND THYROID: The lower neck and thyroid are unremarkable. CHEST WALL: There is no lower cervical, axillary, or supraclavicular lymphadenopathy by size criteria. A right-sided pacemaker is noted. HEART AND PERICARDIUM: The heart is unremarkable. AORTA AND PULMONARY VASCULATURE: There is no pulmonary arterial filling defect to suggest pulmonary embolism. There is no linear filling defect within the aorta to suggest aortic dissection. MEDIASTINUM: There is no mediastinal lymphadenopathy by size criteria. KRISTEN: There is no hilar lymphadenopathy by size criteria. AIRWAY AND ESOPHAGUS: The airway is unremarkable, without endobronchial filling defect. The esophagus is grossly normal. LUNG PARENCHYMA: There is hyperinflation PLEURA: No pleural abnormalities are noted. UPPER ABDOMEN: There is hepatosplenomegaly. BONES AND SOFT TISSUES: There are multiple age-indeterminate compression deformities of the thoracic spine, without osseous retropulsion. Degenerative changes are noted. OTHER: None. IMPRESSION: 1. NO PULMONARY ARTERIAL FILLING DEFECT TO SUGGEST PULMONARY EMBOLISM. 2. HEPATOSPLENOMEGALY. 3. MULTIPLE AGE INDETERMINATE COMPRESSION DEFORMITIES OF THE THORACIC SPINE, WITHOUT OSSEOUS RETROPULSION
[2016-12-17 23:11] LABS: Urine Bacteria Absent (Absent); Urine Bilirubin Negative (Negative); Urine Glucose Negative (Negative); Urine Nitrite Negative (Negative)
[2016-12-17 23:27] LABS: Benzodiazepine Urine Screen None Detected (None Detect)
[2016-12-17] MEDS ORDERED: Levofloxacin 250 MG IVPREMX(*) 250 MG/50 ML BAG IVPB ONE (23:56)
[2016-12-18 01:55] VITALS: BP 101/44
--- NOTE | 2016-12-20 09:50 | PN ---
Progress Note - Progress Note Date of Service: 12/17/16 Note: diagnosed with UTI and placed on levofloxacin preliminary results grew 25-50,000 of e. coli. will wait for culture sensitivity but more than likely will have coverage and bacteria few, not requiring treatment. no further changes needed at this time.
== END 2016-12-18 01:55 ==
LOC: ED 15:26
DX: R53.1 Weakness (principal); R06.00 Dyspnea, unspecified; R06.02 Shortness of breath; R05 Cough; R50.9 Fever, unspecified; R53.83 Other fatigue
CPT/HCPCS: 36415; 71010; 71275; 80053; 80307; 80320; 80329; 81003; 81015; 82550; 82553; 83605; 83690; 83735; 83880; 84443; 84484; 85025; 85060; 85379; 85610; 85730; 86140; 87077; 87086; 87186; 93005; 93970; 96365; 96375; 99285; G0480; J1956; Q9967

== ENCOUNTER 2016-12-25 13:53 | Inpatient (IN) | payer MEDICARE ==
[2016-12-25] MEDS ORDERED: NS 0.9% 1000 ML*IV.FLUID IV ONE (13:58)
[2016-12-25] MEDS ORDERED: Albuterol/Ipratropium NEB.SOL* Albuterol 2.5 MG/Ipratropium 0.5 MG 3 ML INH ONE (13:59)
[2016-12-25 14:18] LABS: Hematocrit 24 % (35-47); Hemoglobin 7.5 g/dl (12.0-16.0); Mean Corpuscular HGB Conc 31 g/dl (31-36); Mean Corpuscular Hemoglobin 28 pg (27-31); Mean Corpuscular Volume 90 fL (80-97); Mean Platelet Volume 9 um3 (7.4-10.4); Red Blood Count 2.69 10^6/ul (4.0-5.4); Red Cell Distribution Width 17 % (10.5-15); White Blood Count 13.1 10^3/ul (3.5-10.8)
--- NOTE | 2016-12-25 14:21 | RAD ---
HISTORY: Shortness of breath, weakness COMPARISONS: December 17, 2016 VIEWS:1: Single frontal portable view of the chest at 2:03 PM FINDINGS: LINES AND TUBES: A right-sided pacemaker is noted CARDIOMEDIASTINAL SILHOUETTE: The cardiomediastinal silhouette is normal for portable technique. PLEURA: The costophrenic angles are sharp. No pleural abnormalities are noted. LUNG PARENCHYMA: There is hyperinflation. ABDOMEN: The upper abdomen is clear. There is no subphrenic gas. BONES AND SOFT TISSUES: The patient is status post internal fixation of the left humerus IMPRESSION: COPD. NO ACTIVE CARDIOPULMONARY DISEASE.
[2016-12-25 14:24] LABS: Add Diff/Slide Review? Manual Diff Added; Comments Flag Yes
[2016-12-25 14:35] LABS: ALT 29 U/L (7-52); Albumin 2.9 g/dL (3.2-5.2); Alkaline Phosphatase 213 U/L (34-104); BUN/Creatinine Ratio 19.8 (8-20); Blood Urea Nitrogen 36 mg/dL (6-24); CO2 Carbon Dioxide 20 mmol/L (22-32); Calcium 8.6 mg/dL (8.6-10.3); Chloride 96 mmol/L (101-111); EGFR African American 34.8 (>60); EGFR Non-African American 27.1 (>60); Globulin 3.1 g/dL (2-4); Glucose 181 mg/dL (70-100); Sodium 131 mmol/L (133-145)
[2016-12-25] MEDS ORDERED: methylPREDNISolone 125 MG* 2 ML VIAL IV ONE (14:36)
[2016-12-25] MEDS ORDERED: cefTRIAXone(*) 1 GM in NS 0.9% 50 ML* 50 ML IVPB ONE (14:50)
[2016-12-25 14:58] LABS: Anion Gap 15 mmol/L (2-11)
[2016-12-25] MEDS ORDERED: oxyCODONE/Acetamin 5/325 MG* TAB PO ONE (15:02)
[2016-12-25 15:59] LABS: Hypochromasia 1+; Immature Granulocytes 7 % (0-9); Myelocytes % 1 % (0-1); Neutrophil % 67 % (38-83); Polychromasia 1+; Reactive Lymph % 2 % (0-6)
[2016-12-25] MEDS ORDERED: NS 0.9% 1000 ML* 1,000 ML IV ONE (17:09)
--- NOTE | 2016-12-25 17:59 | HP ---
H&P (Free Text) History and Physical: Admitting Physician: Neil Drummond PCP:Mariaelena Vilchis RPA-C CC: panic attack, SOB, light headedness HPI: Angela Austin is 76 year old female PMH LBBB s/p PPM, CKD, HTN, HLD, OA x/p 4 hip replacements, tubal ligation, She intially presented 3 weeks ago (hospitalized 12/01-12/06/16) with fatigue, myalgia, low grade fever, and cough productive of white sputum for 2-3 weeks of duration and was found to be anemic to the 8s. Prior to admission she had been treated with amoxiciilin for possible Lyme disease (though subsequent workup only demonstrated 4IgG bands and 1 IgM band, not meeting criteria for acute or chronic infection). Was evaluated by ID physician Joshua Hernandez and was given 10 days of doxycycline starting 12/06/16 while Erchlicia and anaplasma workup was pending (ultimately both negative) . She got an EGD wihich showed a hiatal hernia. A bone marrow biopsy was performed on 12/03/16 which was negative on FISH and kappa/lambda abnormalities. Pt was diagnosed with levaquin x 5 days after a UA on 12/17 demonstrated 3+ leukocyte esterase, 3+ wbc, 3+ rbc. Urine Culture demonstrated 25-50k Ecoli sensitive to levaquin. Of note patient denies every having dysuria or frequency. Pt now presents due to "panic attack", shortness of breath, and trouble walking 2/2 "[running] out of gas". Attests to light headedness. Denies any pain. Her cough has not returned. 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 In the ED Pt hypotensive to 82/48 initially and tachycardic to 106. Temp 98.2. RR 22. Lactic acid was 4.5. Pt intially was given 2L normal saline, ceftriaxone and 125mg solumedrol. PMH: HTN s/p PPM OA s/p bilateral hip replacements + revisions HLD CKD PSH: tubal ligation s/p bilateral hip replacements + bilateral revisions (last August 2015) Medications: Coreg 12.5mg q8 tramadol 50mg q6 Finished levaquin yesterday Of note has recently stopped ferrous sulfate 325mg QID (after explosice bowel movement) and simvastatin 10mg qhs. Allergies: baclofen sulfa (threw up as 4 year old, likely not true allergy) SocHx: Lives with significant other Sanjay [place] on [place] Son Uriel Spears of [facility] is her medical surrogate. FamHX: Cancer (mother, age 78), heart disease (father, age 86) Physical Exam GEN: AAOx4 HEENT: MMM, NSI, NECK: supple, no cervical lymphadenopathy, no JVD appreciated PULM: clear to auscultation w/o wheezing, rales or rhonchi though slightly decreased air exchange at bases. CARD: regular s1, s2, no murmurs, rubs or gallops ABD: soft, nontender, nondistended EXT: pulses intact, trace non-pitting edema, no cyanosis SKIN: multiple eshars and ulcerations particularly on right arm and hand 2/2 parrot bites. Not indurated, warm or erthyematous, some areas of open bleeding. LABs: WBC 13.1 Hgb 7.5, PLT 103, NA 131, Cl 96, Bicarb 20, LABELING STRATEGIST 1.82. Lactic Acid 4.5. MCV 90. Alk Phos 213. Assessment and Plan: Severe Sepsis with evidence of TEJ. Likely infection of unknown etiology but with some rare risk factors to zoonotic infection given substantial exposure to parrots, rabbits and other farm animals. Pt with parrot bite lin on right arm and though not particularly concerning for cellulitis on exam but a potential source for gram positive and zoonotic pathogens. Lactic initially 4.5 and pt has remained hypotensive despite 3rd L of normal saline with MAPS hovering around 60. Patient says she is a full code but does not consent to central line placement at this time for pressors. Will given additional saline bolues for MAP goal >60-65 and start midodrine 10mg q8 for additional blood pressure support. Repeat Lactic Acid, troponin, ESR, CRP. Need to sample Urine for potential infectious source (per verbal report urine just obtained is suspcious for source). Broaden antibiotics from cefriaxone to vancomycin with 20mg/kg loading dose (then pharmacy to dose), zosyn and azithromycin for atypical coverage (though having just finished levaquin x 5 days yesterday would be unlikely) and 2nd line coverage for potential pulmonary psittacosis (vs consideration for first line doxycycline. IF urine is clean consideration for [place]mia (with requisite streptomycin vs gentamycin)? Follow-up blood cultures. Strict I/o. Recommend re-engaging ID physician Joshua Hernandez in AM. Continue telemonitor. Hold home coreg given hypotension. Anemia, consider blood transfusion. No e/o of GI source and stable downtrend from last admission. Negative EGD last admission except for hiatal hernia. Negative BMB. Consider darbo TEJ: Likely 2/2 severe sepsis, possible ATN. Strict I/O. IVF as above. LABELING STRATEGIST 1.8 from 1.5 last week and as low as 1.0 this month. GFR 27 Dispo: medicine telemetry, Low threshold for upgrade to ICU pending repeat labs or continued hemodynamic instability after IVF boluses. CODE: Full though does not want central line Neil Drummond MD
[2016-12-25] MEDS ORDERED: Zosyn per Pharmacy* NOTE FOLLOW UP SCH (18:00)
[2016-12-25] MEDS ORDERED: CMCS: Midodrine (NF) 5 MG TAB PO SCH (18:00)
[2016-12-25] MEDS ORDERED: Vancomycin(*) 1,000 MG VIAL IVPB SCH (18:00)
[2016-12-25] MEDS: Azithromycin TAB* 250 MG PO SCH (18:58)
[2016-12-25 19:21] LABS: Venous Bicarbonate HCO3 21.8 mmol/L (24-28)
[2016-12-25 19:37] LABS: C Reactive Protein 136.19 mg/L (< 5.00)
[2016-12-25 19:39] LABS: Troponin I 0.01 ng/mL (<0.04)
--- NOTE | 2016-12-25 20:20 | PN ---
Subjective Interval History: Given intact mention and improving lactic acid suspicious that the automatic cuff was not registering acurately. RN obtained 110/60 with manual blood pressure cuff when had just been mid 80/high 30s with the automatic cuff. RN Adjusted cuff size to different size and automatic reading was then 106/43. Suggest manual pressure readings if concern for hemodynamic stability. Neil Drummond MD Objective Active Medications: Azithromycin (Zithromax Tab*) 250 mg PO DAILY PATIENCE Last Admin: 12/25/16 18:58 Dose: 250 mg Vancomycin HCl 1,000 mg/ (Sodium Chloride) 250 mls @ 166.667 mls/hr IVPB ONCE ONE PRN Reason: Protocol Stop: 12/25/16 22:59 Piperacillin Sod/Tazobactam (Sod 3.375 gm/ Sodium Chloride) 100 mls @ 25 mls/ hr IVPB Q8H PATIENCE Midodrine (Midodrine (Nf)) 10 mg PO Q8HR PATIENCE PRN Reason: Protocol Pharmacy Consult (Zosyn Per Pharmacy*) 1 note FOLLOW UP .ZOSYN PER PHARMACY [facility] Pharmacy Consult (Vancomycin Random Level*) 1 note FOLLOW UP 0600 ONE Stop: 12/26/16 06:01 Vital Signs 12/25/16 20:00 Respiratory 16 Rate Blood Pressure 85/31 (mmHg) Result Diagrams: 12/25/16 14:05 12/25/16 19:10 Additional Lab and Data: Lab Results 12/25/16 12/25/16 12/25/16 Range/Units 14:05 14:05 14:05 WBC 13.1 H (3.5-10.8) 10^3/ul RBC 2.69 L (4.0-5.4) 10^6/ul Hgb 7.5 L (12.0-16.0) g/dl Hct 24 L (35-47) % MCV 90 (80-97) fL MCH 28 (27-31) pg MCHC 31 (31-36) g/dl RDW 17 H (10.5-15) % Plt Count 103 L (150-450) 10^3/ul MPV 9 (7.4-10.4) um3 Absolute Neuts (auto) 8.9 H (1.5-7.7) 10^3/ul Absolute Lymphs (auto) 1.5 (1.0-4.8) 10^3/ul Absolute Monos (auto) 2.5 H (0-0.8) 10^3/ul Absolute Eos (auto) 0 (0-0.6) 10^3/ul Absolute Basos (auto) 0.2 (0-0.2) 10^3/ul Absolute Nucleated RBC 0.05 10^3/ul Neutrophils % Pending Normal RBC Morphology Pending INR (Anticoag Therapy) 1.28 H (0.89-1.11) APTT 25.7 L (26.0-36.3) seconds Sodium 131 L (133-145) mmol/L Potassium TNP Chloride 96 L (101-111) mmol/L Carbon Dioxide 20 L (22-32) mmol/L Anion Gap 15 H (2-11) mmol/L BUN 36 H (6-24) mg/dL Creatinine 1.82 H (0.51-0.95) mg/dL Est GFR ( Amer) 34.8 (>60) Est GFR (Non-Af Amer) 27.1 (>60) BUN/Creatinine Ratio 19.8 (8-20) Glucose 181 H (70-100) mg/dL Lactic Acid (0.5-2.0) mmol/L Calcium 8.6 (8.6-10.3) mg/dL Total Bilirubin 1.00 (0.2-1.0) mg/dL AST TNP ALT 29 (7-52) U/L Alkaline Phosphatase 213 H (34-104) U/L Troponin I 0.00 (<0.04) ng/mL Total Protein 6.0 L (6.4-8.9) g/dL Albumin 2.9 L (3.2-5.2) g/dL Globulin 3.1 (2-4) g/dL Albumin/Globulin Ratio 0.9 L (1-3) 12/25/16 Range/Units 14:05 WBC (3.5-10.8) 10^3/ul RBC (4.0-5.4) 10^6/ul Hgb (12.0-16.0) g/dl Hct (35-47) % MCV (80-97) fL MCH (27-31) pg MCHC (31-36) g/dl RDW (10.5-15) % Plt Count (150-450) 10^3/ul MPV (7.4-10.4) um3 Absolute Neuts (auto) (1.5-7.7) 10^3/ul Absolute Lymphs (auto) (1.0-4.8) 10^3/ul Absolute Monos (auto) (0-0.8) 10^3/ul Absolute Eos (auto) (0-0.6) 10^3/ul Absolute Basos (auto) (0-0.2) 10^3/ul Absolute Nucleated RBC 10^3/ul Neutrophils % Normal RBC Morphology INR (Anticoag Therapy) (0.89-1.11) APTT (26.0-36.3) seconds Sodium (133-145) mmol/L Potassium Chloride (101-111) mmol/L Carbon Dioxide (22-32) mmol/L Anion Gap (2-11) mmol/L BUN (6-24) mg/dL Creatinine (0.51-0.95) mg/dL Est GFR ( Amer) (>60) Est GFR (Non-Af Amer) (>60) BUN/Creatinine Ratio (8-20) Glucose (70-100) mg/dL Lactic Acid 4.5 H* (0.5-2.0) mmol/L Calcium (8.6-10.3) mg/dL Total Bilirubin (0.2-1.0) mg/dL AST ALT (7-52) U/L Alkaline Phosphatase (34-104) U/L Troponin I (<0.04) ng/mL Total Protein (6.4-8.9) g/dL Albumin (3.2-5.2) g/dL Globulin (2-4) g/dL Albumin/Globulin Ratio (1-3) Assess/Plan/Problems-Billing Assessment:
[2016-12-25] MEDS: CMCS: Midodrine (NF) 5 MG TAB PO SCH ×2 (21:24→22:48)
[2016-12-25] MEDS ORDERED: Vancomycin(*) 1,000 MG in NS 0.9% 250 ML* 250 ML IVPB ONE (21:30)
[2016-12-25 23:28] LABS: Urine Bilirubin Negative (Negative); Urine Glucose 1+(50 mg/dL) (Negative); Urine Nitrite Negative (Negative)
[2016-12-26] MEDS: ZOSYN 3.375 GM Q8H per EXTENDED INFUSION IVPB SCH ×8 (01:07→23:56)
[2016-12-26] MEDS ORDERED: Vancomycin Random Level* NOTE FOLLOW UP ONE (06:00)
[2016-12-26] MEDS: CMCS: Midodrine (NF) 5 MG TAB PO SCH (06:16)
[2016-12-26 06:30] LABS: Hematocrit 21 % (35-47); Hemoglobin 6.6 g/dl (12.0-16.0); Mean Corpuscular HGB Conc 32 g/dl (31-36); Mean Corpuscular Hemoglobin 29 pg (27-31); Mean Corpuscular Volume 89 fL (80-97); Mean Platelet Volume 9 um3 (7.4-10.4); Red Blood Count 2.29 10^6/ul (4.0-5.4); Red Cell Distribution Width 17 % (10.5-15); White Blood Count 7.8 10^3/ul (3.5-10.8)
[2016-12-26 06:32] LABS: Add Diff/Slide Review? Manual Diff Added; Comments Flag Yes
[2016-12-26 06:46] LABS: Vancomycin Random 12.7 mcg/mL
[2016-12-26 06:48] LABS: Albumin 2.2 g/dL (3.2-5.2); BUN/Creatinine Ratio 26.4 (8-20); EGFR African American 45.6 (>60); EGFR Non-African American 35.5 (>60); Magnesium 2.1 mg/dL (1.9-2.7); Potassium 4.4 mmol/L (3.5-5.0); Total Bilirubin 0.5 mg/dL (0.2-1.0); Total Protein 4.2 g/dL (6.4-8.9)
[2016-12-26] MEDS ORDERED: Vancomycin per Pharmacy* NOTE FOLLOW UP PRN (09:28)
[2016-12-26] MEDS: Azithromycin TAB* 250 MG PO SCH (10:00)
[2016-12-26 10:32] LABS: Direct Bilirubin 0.1 mg/dL (0.03-0.18); Indirect Bilirubin 0.4 mg/dL (0.3-1.0)
[2016-12-26] MEDS: Vancomycin(*) 500 MG in NS 0.9% 250 ML* 250 ML IVPB SCH ×2 (10:57→20:10)
[2016-12-26] MEDS ORDERED: [UNRECOGNIZED DRUG - REMARK] TOPICAL ONE ×2 (12:00)
[2016-12-26] MEDS: oxyCODONE/Acetamin 5/325 MG* TAB PO PRN ×2 (14:13→19:52)
[2016-12-26] MEDS: Heparin VIAL(*) 5000 UNITS/ML VIAL (FIVE THOUSAND) SUBCUT SCH ×2 (14:13→23:56)
--- NOTE | 2016-12-26 18:40 | PN ---
Subjective Date of Service: 12/26/16 Interval History: Ms. Austin feels well today. She perseverates on her friend Ed as the reason she was so upset the past few weeks. She explains that he asks her to take care of his bunnies and doesn't help her. He also killed her tomato plants, which is what she believes caused her such anxiety. She came to the hospital yesterday due to what she believes were panic attacks and also due to feeling so weak over the past week. She was able to walk from her bed to the kitchen to get food, but could not go any further and felt generally weak overall. Denies focal weakness, numbness, sleepiness. She denies any pain, nausea, diarrhea, cough, sputum, sore throat, sinusitis, headache. She does report some shortness of breath over the past week that only came on when she became anxious and when she exerted herself. Family History: Unchanged from Admission Social History: Unchanged from Admission Past Medical History: Unchanged from Admission Objective Active Medications: Heparin Sodium (Porcine) (Heparin Vial(*)) 5,000 units SUBCUT Q8HR [facility] Last Admin: 12/26/16 14:13 Dose: 5,000 units Piperacillin Sod/Tazobactam (Sod 3.375 gm/ Sodium Chloride) 100 mls @ 25 mls/ hr IVPB Q8H [facility] Last Admin: 12/26/16 15:57 Dose: 25 mls/hr Vancomycin HCl 500 mg/ Sodium (Chloride) 250 mls @ 166.667 mls/hr IVPB Q8H [facility] Last Admin: 12/26/16 10:57 Dose: 166.667 mls/hr Oxycodone/Acetaminophen (Percocet 5/325 Tab*) 1 tab PO Q6H PRN PRN Reason: PAIN Last Admin: 12/26/16 14:13 Dose: 1 tab Pharmacy Consult (Zosyn Per Pharmacy*) 1 note FOLLOW UP .ZOSYN PER PHARMACY [facility] Pharmacy Consult (Vancomycin Per Pharmacy*) 1 note FOLLOW UP . PRN PRN Reason: PER PROTOCOL Pharmacy Profile Note (Vancomycin Trough Check) 1 note FOLLOW UP 1000 ONE Stop: 12/27/16 10:01 Vital Signs 12/25/16 12/25/16 12/25/16 20:00 20:15 20:23 Temperature Pulse Rate 71 Respiratory 16 15 15 Rate Blood Pressure 85/31 106/43 104/44 (mmHg) O2 Sat by Pulse 100 Oximetry 12/25/16 12/25/16 12/25/16 20:30 20:39 21:00 Temperature Pulse Rate 74 74 Respiratory 16 17 15 Rate Blood Pressure 103/37 100/43 97/35 (mmHg) O2 Sat by Pulse 100 98 Oximetry 12/25/16 12/25/16 12/25/16 21:07 21:21 21:35 Temperature 98.3 F 98.2 F Pulse Rate 71 Respiratory 18 11 Rate Blood Pressure 114/49 114/49 (mmHg) O2 Sat by Pulse 100 Oximetry 12/25/16 12/25/16 12/25/16 21:45 22:00 22:15 Temperature Pulse Rate 76 Respiratory 17 16 16 Rate Blood Pressure 121/62 111/63 130/57 (mmHg) O2 Sat by Pulse 100 Oximetry 12/25/16 12/25/16 12/25/16 22:30 22:45 23:00 Temperature Pulse Rate 70 68 Respiratory 17 19 15 Rate Blood Pressure 128/65 120/55 119/62 (mmHg) O2 Sat by Pulse 96 99 Oximetry 12/25/16 12/25/16 12/25/16 23:01 23:05 23:15 Temperature Pulse Rate 68 70 68 Respiratory 26 17 17 Rate Blood Pressure 122/68 (mmHg) O2 Sat by Pulse 99 100 100 Oximetry 12/25/16 12/25/16 12/26/16 23:30 23:45 00:00 Temperature 97.4 F Pulse Rate 61 68 65 Respiratory 17 18 17 Rate Blood Pressure 128/65 126/51 114/65 (mmHg) O2 Sat by Pulse 97 88 90 Oximetry 12/26/16 12/26/16 12/26/16 00:15 00:30 00:45 Temperature Pulse Rate 64 64 62 Respiratory 17 17 18 Rate Blood Pressure 99/70 105/48 99/39 (mmHg) O2 Sat by Pulse 92 97 97 Oximetry 12/26/16 12/26/16 12/26/16 01:00 01:15 01:30 Temperature Pulse Rate 68 62 64 Respiratory 17 15 20 Rate Blood Pressure 102/54 99/41 92/40 (mmHg) O2 Sat by Pulse 96 95 100 Oximetry 12/26/16 12/26/16 12/26/16 01:45 02:00 02:15 Temperature Pulse Rate 63 61 60 Respiratory 18 18 16 Rate Blood Pressure 104/44 100/43 101/46 (mmHg) O2 Sat by Pulse 94 100 98 Oximetry 12/26/16 12/26/16 12/26/16 02:30 02:45 03:00 Temperature Pulse Rate 60 60 60 Respiratory 13 16 16 Rate Blood Pressure 96/43 102/46 94/39 (mmHg) O2 Sat by Pulse 91 95 100 Oximetry 12/26/16 12/26/16 12/26/16 03:10 03:15 03:30 Temperature Pulse Rate 60 60 Respiratory 16 16 16 Rate Blood Pressure 96/42 90/42 (mmHg) O2 Sat by Pulse 100 99 Oximetry 12/26/16 12/26/16 12/26/16 03:45 04:00 04:15 Temperature 97.4 F Pulse Rate 60 64 60 Respiratory 16 17 20 Rate Blood Pressure 102/46 109/86 99/46 (mmHg) O2 Sat by Pulse 89 98 100 Oximetry 12/26/16 12/26/16 12/26/16 04:30 04:45 05:00 Temperature Pulse Rate 60 60 62 Respiratory 15 15 16 Rate Blood Pressure 99/46 100/51 101/55 (mmHg) O2 Sat by Pulse 100 97 89 Oximetry 12/26/16 12/26/16 12/26/16 05:16 05:30 05:45 Temperature Pulse Rate 64 60 60 Respiratory 18 17 15 Rate Blood Pressure 117/53 111/51 103/47 (mmHg) O2 Sat by Pulse 97 100 92 Oximetry 12/26/16 12/26/16 12/26/16 05:51 06:00 06:15 Temperature Pulse Rate 60 62 Respiratory 13 16 19 Rate Blood Pressure 97/46 104/61 (mmHg) O2 Sat by Pulse 93 Oximetry 12/26/16 12/26/16 12/26/16 06:30 06:45 07:00 Temperature Pulse Rate 60 60 60 Respiratory 16 15 18 Rate Blood Pressure 116/62 139/59 146/64 (mmHg) O2 Sat by Pulse 93 91 Oximetry 12/26/16 12/26/16 12/26/16 07:15 07:31 07:42 Temperature 98.6 F Pulse Rate 60 62 Respiratory 16 21 Rate Blood Pressure 141/62 131/81 (mmHg) O2 Sat by Pulse 98 88 Oximetry 12/26/16 12/26/16 12/26/16 07:46 07:53 08:00 Temperature Pulse Rate 67 60 Respiratory 16 18 19 Rate Blood Pressure 186/182 (mmHg) O2 Sat by Pulse 78 100 Oximetry 12/26/16 12/26/16 12/26/16 08:01 08:15 08:31 Temperature Pulse Rate 66 61 62 Respiratory 16 16 19 Rate Blood Pressure 133/41 145/69 146/60 (mmHg) O2 Sat by Pulse 100 100 100 Oximetry 12/26/16 12/26/16 12/26/16 08:45 09:00 09:16 Temperature Pulse Rate 60 61 61 Respiratory 18 18 20 Rate Blood Pressure 132/51 125/53 88/59 (mmHg) O2 Sat by Pulse 100 100 100 Oximetry 12/26/16 12/26/16 12/26/16 09:31 09:46 10:00 Temperature Pulse Rate Respiratory 20 16 18 Rate Blood Pressure 81/75 141/75 (mmHg) O2 Sat by Pulse Oximetry 12/26/16 12/26/16 12/26/16 10:01 10:16 10:30 Temperature Pulse Rate Respiratory 21 21 19 Rate Blood Pressure 112/62 128/70 115/53 (mmHg) O2 Sat by Pulse Oximetry 12/26/16 12/26/16 12/26/16 10:45 11:00 11:16 Temperature Pulse Rate Respiratory 17 17 16 Rate Blood Pressure 134/74 122/56 109/57 (mmHg) O2 Sat by Pulse Oximetry 12/26/16 12/26/16 12/26/16 11:31 11:46 12:00 Temperature 97.3 F Pulse Rate Respiratory 16 21 16 Rate Blood Pressure 111/99 108/76 (mmHg) O2 Sat by Pulse Oximetry 12/26/16 12/26/16 12/26/16 12:34 12:47 13:00 Temperature 97.3 F Pulse Rate 64 Respiratory 19 17 Rate Blood Pressure 123/56 106/50 (mmHg) O2 Sat by Pulse 100 Oximetry 12/26/16 12/26/16 12/26/16 13:15 13:30 13:45 Temperature Pulse Rate 62 63 66 Respiratory 16 16 17 Rate Blood Pressure 102/43 94/44 104/49 (mmHg) O2 Sat by Pulse 100 100 100 Oximetry 12/26/16 12/26/16 12/26/16 14:00 14:01 14:13 Temperature Pulse Rate 66 66 Respiratory 15 16 17 Rate Blood Pressure 108/73 (mmHg) O2 Sat by Pulse Oximetry 12/26/16 12/26/16 12/26/16 14:15 14:30 15:00 Temperature Pulse Rate 60 Respiratory 16 16 16 Rate Blood Pressure 111/63 104/43 (mmHg) O2 Sat by Pulse 99 Oximetry 12/26/16 12/26/16 12/26/16 15:47 15:55 16:00 Temperature 97.9 F Pulse Rate 68 62 65 Respiratory 20 23 Rate Blood Pressure 107/53 106/58 (mmHg) O2 Sat by Pulse 95 97 94 Oximetry 12/26/16 12/26/16 12/26/16 16:15 16:30 16:46 Temperature Pulse Rate 62 64 60 Respiratory 16 15 23 Rate Blood Pressure 108/37 114/58 112/57 (mmHg) O2 Sat by Pulse 97 96 Oximetry 12/26/16 12/26/16 16:53 17:00 Temperature Pulse Rate 60 61 Respiratory 18 18 Rate Blood Pressure 98/59 (mmHg) O2 Sat by Pulse 97 95 Oximetry Oxygen Devices in Use Now: None Appearance: dishevled, bugs in her hair Eyes: No Scleral Icterus, PERRLA Ears/Nose/Mouth/Throat: NL Teeth, Lips, Gums, Clear Oropharnyx, Mucous Membranes Moist Neck: NL Appearance and Movements; NL JVP, Trachea Midline Respiratory: Symmetrical Chest Expansion and Respiratory Effort, Clear to Auscultation Cardiovascular: NL Sounds; No Murmurs; No JVD, RRR, No Edema Abdominal: NL Sounds; No Tenderness; No Distention, No Hepatosplenomegaly Lymphatic: No Cervical Adenopathy Extremities: No Edema Skin: - - few scattered echymoses upper extremities. skin tears and mottling b/ l lower extremities. sacral decubitus ulcer noted. Neurological: Alert and Oriented x 3, - - disorganized reasoning, poor attention Result Diagrams: 12/26/16 06:15 12/26/16 06:15 Additional Lab and Data: Lab Results 12/25/16 12/25/16 12/25/16 Range/Units 14:05 14:05 14:05 WBC 13.1 H (3.5-10.8) 10^3/ul RBC 2.69 L (4.0-5.4) 10^6/ul Hgb 7.5 L (12.0-16.0) g/dl Hct 24 L (35-47) % MCV 90 (80-97) fL MCH 28 (27-31) pg MCHC 31 (31-36) g/dl RDW 17 H (10.5-15) % Plt Count 103 L (150-450) 10^3/ul MPV 9 (7.4-10.4) um3 Absolute Neuts (auto) 8.9 H (1.5-7.7) 10^3/ul Absolute Lymphs (auto) 1.5 (1.0-4.8) 10^3/ul Absolute Monos (auto) 2.5 H (0-0.8) 10^3/ul Absolute Eos (auto) 0 (0-0.6) 10^3/ul Absolute Basos (auto) 0.2 (0-0.2) 10^3/ul Absolute Nucleated RBC 0.05 10^3/ul Neutrophils % Pending Normal RBC Morphology Pending INR (Anticoag Therapy) 1.28 H (0.89-1.11) APTT 25.7 L (26.0-36.3) seconds Sodium 131 L (133-145) mmol/L Potassium TNP Chloride 96 L (101-111) mmol/L Carbon Dioxide 20 L (22-32) mmol/L Anion Gap 15 H (2-11) mmol/L BUN 36 H (6-24) mg/dL Creatinine 1.82 H (0.51-0.95) mg/dL Est GFR ( Amer) 34.8 (>60) Est GFR (Non-Af Amer) 27.1 (>60) BUN/Creatinine Ratio 19.8 (8-20) Glucose 181 H (70-100) mg/dL Lactic Acid (0.5-2.0) mmol/L Calcium 8.6 (8.6-10.3) mg/dL Total Bilirubin 1.00 (0.2-1.0) mg/dL AST TNP ALT 29 (7-52) U/L Alkaline Phosphatase 213 H (34-104) U/L Troponin I 0.00 (<0.04) ng/mL Total Protein 6.0 L (6.4-8.9) g/dL Albumin 2.9 L (3.2-5.2) g/dL Globulin 3.1 (2-4) g/dL Albumin/Globulin Ratio 0.9 L (1-3) 12/25/16 Range/Units 14:05 WBC (3.5-10.8) 10^3/ul RBC (4.0-5.4) 10^6/ul Hgb (12.0-16.0) g/dl Hct (35-47) % MCV (80-97) fL MCH (27-31) pg MCHC (31-36) g/dl RDW (10.5-15) % Plt Count (150-450) 10^3/ul MPV (7.4-10.4) um3 Absolute Neuts (auto) (1.5-7.7) 10^3/ul Absolute Lymphs (auto) (1.0-4.8) 10^3/ul Absolute Monos (auto) (0-0.8) 10^3/ul Absolute Eos (auto) (0-0.6) 10^3/ul Absolute Basos (auto) (0-0.2) 10^3/ul Absolute Nucleated RBC 10^3/ul Neutrophils % Normal RBC Morphology INR (Anticoag Therapy) (0.89-1.11) APTT (26.0-36.3) seconds Sodium (133-145) mmol/L Potassium Chloride (101-111) mmol/L Carbon Dioxide (22-32) mmol/L Anion Gap (2-11) mmol/L BUN (6-24) mg/dL Creatinine (0.51-0.95) mg/dL Est GFR ( Amer) (>60) Est GFR (Non-Af Amer) (>60) BUN/Creatinine Ratio (8-20) Glucose (70-100) mg/dL Lactic Acid 4.5 H* (0.5-2.0) mmol/L Calcium (8.6-10.3) mg/dL Total Bilirubin (0.2-1.0) mg/dL AST ALT (7-52) U/L Alkaline Phosphatase (34-104) U/L Troponin I (<0.04) ng/mL Total Protein (6.4-8.9) g/dL Albumin (3.2-5.2) g/dL Globulin (2-4) g/dL Albumin/Globulin Ratio (1-3) Microbiology and Other Data: Microbiology 12/25/16 20:35 Nasal Screen MRSA (PCR)(SHEMAR) - Final Nasal Mrsa Negative Assess/Plan/Problems-Billing Assessment: 1. Severe Sepsis. No source has been found, and subjectively she localizes no source. While her blood pressure improved when the BP cuff was switched, raising suspicion about whether she was truly hypotensive at admission, she did have elevated lactate, leukocytosis, AGMA, and thrombocytopenia. Still, her CXR is unremarkable, her UA is unremarkable, her blood cultures have no growth to date, she has no diarrhea to suggest c. diff, no RUQ pain to suggest cholecystitis. The most probable source if this was truly sepsis at this point is her skin, however her decubitus ulcers do not appear infected to me. Discontinue azithromycin. Continue vanc/zosyn tonight and if continues to be afebrile tomorrow, will DC antibiotics. 2. Normocytic Anemia Transfuse another unit today. Hemodynamically stable. A normal LDH nearly rules out hemolysis, and she has no blood loss. I suspect this is actually the source of her fatigue and shortness of breath that caused her to present to the ED. An EGD was done at the last admission and ruled out an upper GI source, and FOBT was negative at that time (earlier this month). 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 It is unclear whether she has followed up with hematology since this result returned. I will call hematology to discuss this case with them. This likely explains both her normocytic anemia and her thrombocytopenia. 3. Anion Gap Metabolic Acidosis. Resolved after IVF resuscitation and antibiotics. 4. Thrombocytopenia. unclear if related to sepsis or lymphoproliferative disorder. No bleeding. 5. TEJ Likely prerenal due to sepsis versus anemia. Increase PO intake today.
[2016-12-27] MEDS: Vancomycin(*) 500 MG in NS 0.9% 250 ML* 250 ML IVPB SCH ×2 (03:38→11:42)
[2016-12-27] MEDS: oxyCODONE/Acetamin 5/325 MG* TAB PO PRN (05:40)
[2016-12-27] MEDS: Heparin VIAL(*) 5000 UNITS/ML VIAL (FIVE THOUSAND) SUBCUT SCH ×3 (06:01→21:47)
[2016-12-27] MEDS: ZOSYN 3.375 GM Q8H per EXTENDED INFUSION IVPB SCH ×4 (06:01→17:51)
[2016-12-27 06:05] LABS: Hematocrit 25 % (35-47); Hemoglobin 8.4 g/dl (12.0-16.0); Mean Corpuscular HGB Conc 34 g/dl (31-36); Mean Corpuscular Hemoglobin 30 pg (27-31); Mean Corpuscular Volume 88 fL (80-97); Mean Platelet Volume 8 um3 (7.4-10.4); Red Blood Count 2.82 10^6/ul (4.0-5.4); Red Cell Distribution Width 17 % (10.5-15); White Blood Count 10.6 10^3/ul (3.5-10.8)
[2016-12-27 06:07] LABS: Add Diff/Slide Review? Manual Diff Added; Comments Flag Yes
[2016-12-27 06:21] LABS: Albumin 2.2 g/dL (3.2-5.2); BUN/Creatinine Ratio 24.8 (8-20); Calcium 7.5 mg/dL (8.6-10.3); EGFR Non-African American 38.9 (>60); Globulin 2.1 g/dL (2-4); Total Bilirubin 0.7 mg/dL (0.2-1.0); Total Protein 4.3 g/dL (6.4-8.9)
[2016-12-27 06:27] LABS: Hypochromasia 2+; Immature Granulocytes 8 % (0-9); Macrocytosis 1+; Microcytosis 1+; Neutrophil % 77 % (38-83); Polychromasia 1+; Reactive Lymph % 1 % (0-6)
[2016-12-27] MEDS ORDERED: Vancomycin Trough Check NOTE FOLLOW UP ONE (10:00)
--- NOTE | 2016-12-27 13:50 | PN ---
Subjective Date of Service: 12/27/16 Interval History: Ms. Austin feels well today. She has no new complaints. She slept well, has a good appetite, and says her mood is improved since being here. She received the blood transfusion yesterday without event. She denies cough, shortness of breath, abdominal pain, constipation, diarrhea, weakness, anxiety. Family History: Unchanged from Admission Social History: Unchanged from Admission Past Medical History: Unchanged from Admission Objective Active Medications: Heparin Sodium (Porcine) (Heparin Vial(*)) 5,000 units SUBCUT Q8HR [facility] Last Admin: 12/27/16 06:01 Dose: 5,000 units Piperacillin Sod/Tazobactam (Sod 3.375 gm/ Sodium Chloride) 100 mls @ 25 mls/ hr IVPB Q8H [facility] Last Admin: 12/27/16 06:01 Dose: 25 mls/hr Vancomycin HCl 750 mg/ Sodium (Chloride) 250 mls @ 166.667 mls/hr IVPB Q12H [facility] Oxycodone/Acetaminophen (Percocet 5/325 Tab*) 1 tab PO Q6H PRN PRN Reason: PAIN Last Admin: 12/27/16 05:40 Dose: 1 tab Pharmacy Consult (Zosyn Per Pharmacy*) 1 note FOLLOW UP .ZOSYN PER PHARMACY [facility] Pharmacy Consult (Vancomycin Per Pharmacy*) 1 note FOLLOW UP . PRN PRN Reason: PER PROTOCOL Pharmacy Profile Note (Vancomycin Trough Check) 1 note FOLLOW UP 1530 ONE Stop: 12/29/16 15:31 Vital Signs 12/26/16 12/26/16 12/26/16 13:45 14:00 14:01 Temperature Pulse Rate 66 66 66 Respiratory 17 15 16 Rate Blood Pressure 104/49 108/73 (mmHg) O2 Sat by Pulse 100 Oximetry 12/26/16 12/26/16 12/26/16 14:13 14:15 14:30 Temperature Pulse Rate 60 Respiratory 17 16 16 Rate Blood Pressure 111/63 104/43 (mmHg) O2 Sat by Pulse 99 Oximetry 12/26/16 12/26/16 12/26/16 15:00 15:47 15:55 Temperature Pulse Rate 68 62 Respiratory 16 20 Rate Blood Pressure 107/53 (mmHg) O2 Sat by Pulse 95 97 Oximetry 12/26/16 12/26/16 12/26/16 16:00 16:15 16:30 Temperature 97.9 F Pulse Rate 65 62 64 Respiratory 23 16 15 Rate Blood Pressure 106/58 108/37 114/58 (mmHg) O2 Sat by Pulse 94 97 96 Oximetry 12/26/16 12/26/16 12/26/16 16:46 16:53 17:00 Temperature Pulse Rate 60 60 61 Respiratory 23 18 18 Rate Blood Pressure 112/57 98/59 (mmHg) O2 Sat by Pulse 97 95 Oximetry 12/26/16 12/26/16 12/26/16 17:15 17:30 17:45 Temperature Pulse Rate 61 61 60 Respiratory 15 16 15 Rate Blood Pressure 105/45 100/44 102/47 (mmHg) O2 Sat by Pulse 94 95 94 Oximetry 12/26/16 12/26/16 12/26/16 18:00 18:16 18:30 Temperature 97.9 F 97.7 F Pulse Rate 63 63 61 Respiratory 16 12 13 Rate Blood Pressure 100/48 116/48 102/46 (mmHg) O2 Sat by Pulse 97 97 96 Oximetry 12/26/16 12/26/16 12/26/16 18:45 19:00 19:15 Temperature 97.7 F 97.7 F 97.5 F Pulse Rate 63 66 67 Respiratory 17 18 18 Rate Blood Pressure 103/45 100/58 101/63 (mmHg) O2 Sat by Pulse 97 95 97 Oximetry 12/26/16 12/26/16 12/26/16 19:30 19:45 19:52 Temperature 97.5 F 98.1 F Pulse Rate 69 68 Respiratory 19 19 21 Rate Blood Pressure 105/36 114/61 (mmHg) O2 Sat by Pulse 100 100 Oximetry 12/26/16 12/26/16 12/26/16 20:00 20:08 20:15 Temperature 98.2 F 98.2 F 98.2 F Pulse Rate 65 67 67 Respiratory 16 17 21 Rate Blood Pressure 116/56 117/57 108/65 (mmHg) O2 Sat by Pulse 99 99 97 Oximetry 12/26/16 12/26/16 12/26/16 20:30 20:45 21:00 Temperature 98.4 F 98.4 F 98.6 F Pulse Rate 68 63 63 Respiratory 22 19 14 Rate Blood Pressure 122/65 118/59 110/54 (mmHg) O2 Sat by Pulse 95 97 95 Oximetry 09/05/1312/26/16 12/26/16 21:15 21:30 21:45 Temperature 98.6 F 98.6 F 98.6 F Pulse Rate 60 60 60 Respiratory 7 17 14 Rate Blood Pressure 106/52 105/42 104/47 (mmHg) O2 Sat by Pulse 95 94 95 Oximetry 12/26/16 12/26/16 12/26/16 22:00 22:15 22:30 Temperature 98.4 F 98.4 F 98.2 F Pulse Rate 60 60 60 Respiratory 16 15 15 Rate Blood Pressure 98/47 102/46 98/52 (mmHg) O2 Sat by Pulse 92 94 94 Oximetry 12/26/16 12/26/16 12/26/16 22:45 23:00 23:15 Temperature 98.2 F 98.2 F 98.1 F Pulse Rate 60 60 61 Respiratory 17 15 15 Rate Blood Pressure 104/52 103/52 94/45 (mmHg) O2 Sat by Pulse 93 93 93 Oximetry 12/26/16 12/26/16 12/27/16 23:30 23:45 00:00 Temperature 98.1 F 97.9 F 97.9 F Pulse Rate 60 60 76 Respiratory 15 15 20 Rate Blood Pressure 104/49 110/51 141/63 (mmHg) O2 Sat by Pulse 94 94 96 Oximetry 12/27/16 12/27/16 12/27/16 00:14 00:15 00:30 Temperature 97.9 F 97.9 F 97.9 F Pulse Rate 60 60 60 Respiratory 13 4 15 Rate Blood Pressure 122/57 122/54 (mmHg) O2 Sat by Pulse 92 93 95 Oximetry 12/27/16 12/27/16 12/27/16 00:45 01:00 01:15 Temperature 97.9 F 97.9 F 97.9 F Pulse Rate 60 60 61 Respiratory 15 14 18 Rate Blood Pressure 105/50 99/50 104/51 (mmHg) O2 Sat by Pulse 93 94 94 Oximetry 12/27/16 12/27/16 12/27/16 01:30 01:46 02:00 Temperature 97.7 F 97.7 F 97.7 F Pulse Rate 60 65 Respiratory 14 16 18 Rate Blood Pressure 107/50 100/44 (mmHg) O2 Sat by Pulse 94 96 Oximetry 12/27/16 12/27/16 12/27/16 02:01 02:15 02:30 Temperature 97.7 F 97.7 F 97.5 F Pulse Rate 62 60 60 Respiratory 10 16 16 Rate Blood Pressure 120/52 109/47 108/47 (mmHg) O2 Sat by Pulse 95 93 92 Oximetry 12/27/16 12/27/16 12/27/16 02:43 02:45 03:00 Temperature 97.5 F 97.5 F Pulse Rate 60 62 Respiratory 15 14 23 Rate Blood Pressure 114/53 113/54 (mmHg) O2 Sat by Pulse 93 97 Oximetry 12/27/16 12/27/16 12/27/16 03:16 03:30 03:46 Temperature 97.5 F 97.3 F 97.7 F Pulse Rate 71 68 67 Respiratory 13 20 29 Rate Blood Pressure 128/105 120/62 130/41 (mmHg) O2 Sat by Pulse 94 94 95 Oximetry 12/27/16 12/27/16 12/27/16 03:50 04:00 04:15 Temperature 36.7 F 98.1 F 98.2 F Pulse Rate 61 60 Respiratory 20 18 15 Rate Blood Pressure 111/49 109/45 (mmHg) O2 Sat by Pulse 94 94 Oximetry 12/27/16 12/27/16 12/27/16 04:30 04:45 05:00 Temperature 98.2 F 98.2 F 98.2 F Pulse Rate 61 63 61 Respiratory 27 5 12 Rate Blood Pressure 115/49 100/44 (mmHg) O2 Sat by Pulse 95 93 96 Oximetry 12/27/16 12/27/16 12/27/16 05:01 05:15 05:31 Temperature 98.2 F 98.4 F 98.4 F Pulse Rate 63 60 65 Respiratory 17 16 21 Rate Blood Pressure 116/50 126/56 120/45 (mmHg) O2 Sat by Pulse 96 94 98 Oximetry 12/27/16 12/27/16 12/27/16 05:40 05:41 06:00 Temperature 98.6 F 98.6 F Pulse Rate 62 63 Respiratory 17 12 18 Rate Blood Pressure 120/45 (mmHg) O2 Sat by Pulse 93 92 Oximetry 12/27/16 12/27/16 12/27/16 06:01 07:00 07:15 Temperature 98.6 F 98.8 F 98.6 F Pulse Rate 63 60 67 Respiratory 15 18 12 Rate Blood Pressure 125/51 96/44 (mmHg) O2 Sat by Pulse 95 91 95 Oximetry 12/27/16 12/27/16 12/27/16 08:00 09:00 09:01 Temperature 98.4 F 98.1 F 98.1 F Pulse Rate 60 61 81 Respiratory 16 20 16 Rate Blood Pressure 98/44 97/50 (mmHg) O2 Sat by Pulse 94 93 97 Oximetry 12/27/16 12/27/16 12/27/16 10:00 10:01 11:00 Temperature 98.2 F 98.2 F 98.6 F Pulse Rate 64 71 66 Respiratory 15 15 10 Rate Blood Pressure 87/68 109/64 (mmHg) O2 Sat by Pulse 92 95 96 Oximetry 12/27/16 12/27/16 12:00 13:00 Temperature 98.6 F Pulse Rate 75 Respiratory 25 15 Rate Blood Pressure 124/78 108/53 (mmHg) O2 Sat by Pulse 97 Oximetry Oxygen Devices in Use Now: None Appearance: alert, well appearing, pale Eyes: No Scleral Icterus, PERRLA Ears/Nose/Mouth/Throat: NL Teeth, Lips, Gums, Clear Oropharnyx Neck: NL Appearance and Movements; NL JVP Respiratory: Symmetrical Chest Expansion and Respiratory Effort, Clear to Auscultation Cardiovascular: NL Sounds; No Murmurs; No JVD, RRR Abdominal: NL Sounds; No Tenderness; No Distention, No Hepatosplenomegaly Lymphatic: No Cervical Adenopathy, No Axillary Adenopathy Extremities: - - left lower extremity edema > right Skin: - - scattered echymoses Neurological: Alert and Oriented x 3 Result Diagrams: 12/27/16 05:45 12/27/16 05:45 Additional Lab and Data: Lab Results 12/25/16 12/25/16 12/25/16 Range/Units 14:05 14:05 14:05 WBC 13.1 H (3.5-10.8) 10^3/ul RBC 2.69 L (4.0-5.4) 10^6/ul Hgb 7.5 L (12.0-16.0) g/dl Hct 24 L (35-47) % MCV 90 (80-97) fL MCH 28 (27-31) pg MCHC 31 (31-36) g/dl RDW 17 H (10.5-15) % Plt Count 103 L (150-450) 10^3/ul MPV 9 (7.4-10.4) um3 Absolute Neuts (auto) 8.9 H (1.5-7.7) 10^3/ul Absolute Lymphs (auto) 1.5 (1.0-4.8) 10^3/ul Absolute Monos (auto) 2.5 H (0-0.8) 10^3/ul Absolute Eos (auto) 0 (0-0.6) 10^3/ul Absolute Basos (auto) 0.2 (0-0.2) 10^3/ul Absolute Nucleated RBC 0.05 10^3/ul Neutrophils % Pending Normal RBC Morphology Pending INR (Anticoag Therapy) 1.28 H (0.89-1.11) APTT 25.7 L (26.0-36.3) seconds Sodium 131 L (133-145) mmol/L Potassium TNP Chloride 96 L (101-111) mmol/L Carbon Dioxide 20 L (22-32) mmol/L Anion Gap 15 H (2-11) mmol/L BUN 36 H (6-24) mg/dL Creatinine 1.82 H (0.51-0.95) mg/dL Est GFR ( Amer) 34.8 (>60) Est GFR (Non-Af Amer) 27.1 (>60) BUN/Creatinine Ratio 19.8 (8-20) Glucose 181 H (70-100) mg/dL Lactic Acid (0.5-2.0) mmol/L Calcium 8.6 (8.6-10.3) mg/dL Total Bilirubin 1.00 (0.2-1.0) mg/dL AST TNP ALT 29 (7-52) U/L Alkaline Phosphatase 213 H (34-104) U/L Troponin I 0.00 (<0.04) ng/mL Total Protein 6.0 L (6.4-8.9) g/dL Albumin 2.9 L (3.2-5.2) g/dL Globulin 3.1 (2-4) g/dL Albumin/Globulin Ratio 0.9 L (1-3) 12/25/16 Range/Units 14:05 WBC (3.5-10.8) 10^3/ul RBC (4.0-5.4) 10^6/ul Hgb (12.0-16.0) g/dl Hct (35-47) % MCV (80-97) fL MCH (27-31) pg MCHC (31-36) g/dl RDW (10.5-15) % Plt Count (150-450) 10^3/ul MPV (7.4-10.4) um3 Absolute Neuts (auto) (1.5-7.7) 10^3/ul Absolute Lymphs (auto) (1.0-4.8) 10^3/ul Absolute Monos (auto) (0-0.8) 10^3/ul Absolute Eos (auto) (0-0.6) 10^3/ul Absolute Basos (auto) (0-0.2) 10^3/ul Absolute Nucleated RBC 10^3/ul Neutrophils % Normal RBC Morphology INR (Anticoag Therapy) (0.89-1.11) APTT (26.0-36.3) seconds Sodium (133-145) mmol/L Potassium Chloride (101-111) mmol/L Carbon Dioxide (22-32) mmol/L Anion Gap (2-11) mmol/L BUN (6-24) mg/dL Creatinine (0.51-0.95) mg/dL Est GFR ( Amer) (>60) Est GFR (Non-Af Amer) (>60) BUN/Creatinine Ratio (8-20) Glucose (70-100) mg/dL Lactic Acid 4.5 H* (0.5-2.0) mmol/L Calcium (8.6-10.3) mg/dL Total Bilirubin (0.2-1.0) mg/dL AST ALT (7-52) U/L Alkaline Phosphatase (34-104) U/L Troponin I (<0.04) ng/mL Total Protein (6.4-8.9) g/dL Albumin (3.2-5.2) g/dL Globulin (2-4) g/dL Albumin/Globulin Ratio (1-3) Microbiology and Other Data: Microbiology 12/25/16 20:35 Nasal Screen MRSA (PCR)(SHEMAR) - Final Nasal Mrsa Negative Assess/Plan/Problems-Billing Assessment: 1. Severe Sepsis. No source has been found, and subjectively she localizes no source. While her blood pressure improved when the BP cuff was switched, raising suspicion about whether she was truly hypotensive at admission, she did have elevated lactate, leukocytosis, AGMA, and thrombocytopenia. Still, her CXR is unremarkable, her UA is unremarkable, her blood cultures have no growth to date, she has no diarrhea to suggest c. diff, no RUQ pain to suggest cholecystitis. The most probable source if this was truly sepsis at this point is her skin, however her decubitus ulcers do not appear infected to me. She has been normotensive, afebrile, and her leukocytosis has normalized. No tachycardia, tachypnea to suggest ongoing sepsis. Without a source, will plan to discontinue antibiotics today. While she met SIRS criteria at admission, I suspect it may have been in response to anxiety and anemia. 2. Normocytic Anemia Hemodynamically stable. She has received two units of PRBCs since admission with appropriate response. A normal LDH ruled out hemolysis, and she has no blood loss. I suspect this is actually the source of her fatigue and shortness of breath that caused her to present to the ED. An EGD was done at the last admission and ruled out an upper GI source, and FOBT was negative at that time ( earlier this month). 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 This likely explains both her normocytic anemia and her thrombocytopenia. Consult hematology today. I discussed these findings with Ms. Austin and expressed my concern for malignancy. She was able to explain these findings back to me, and says she is interested in chemotherapy if a further workup proves malignancy, and if chemotherapy is offered to her by hematology. 3. Anion Gap Metabolic Acidosis. Resolved after IVF resuscitation and antibiotics. 4. Thrombocytopenia. unclear if related to sepsis or lymphoproliferative disorder. No bleeding. 5. TEJ Likely prerenal due to sepsis versus anemia versus involvement of myeloma. Increase PO intake today. Disposition. Out of bed today, transfer to floor.
[2016-12-27] MEDS ORDERED: Vancomycin(*) 750 MG in NS 0.9% 250 ML* 250 ML IVPB SCH (16:00)
--- NOTE | 2016-12-27 21:35 | ED ---
Tim Sampson Benjamin, scribed for Pradeep Valverde MD on 12/25/16 at 1512 . Shortness of Breath - HPI Summary HPI Summary: 76yo female BIBA for SOB. Pt has hx of bronchitis and states having SOB and general weakness for 3 weeks. Symptoms worsened 1 week ago. Also hx of anxiety, Low BP and anemia. Recentl, pt was dxed with UTI. Pt called EMS for increasing SOB when trying to walk today. Pt also said that she had a mini panic attack, which she describes hyperventilation and tachypnea. Pt is not on breathing tx or Oxygen at home. Pt has a pace maker installed. - History of Current Complaint Chief Complaint: EDShortnessOfBreath Hx Obtained From: Patient Onset/Duration: Gradual Onset, Lasting Weeks - 3 weeks, Still Present, Worse Since - today Timing: Constant Current Severity: Moderate Dyspnea At: Exertion - walking Alleviating Factors: Nothing Associated Signs & Symptoms: Wheezing - Allergy/Home Medications Allergies/Adverse Reactions: Allergies Allergy/AdvReac Type Severity Reaction Status Date / Time Baclofen AdvReac Fatigue Verified 12/17/16 15:29 Sulfa Antibiotics AdvReac Nausea And Verified 12/17/16 15:29 Vomiting Home Medications: Home Medications Carvedilol TAB* [Coreg TAB*] 12.5 mg PO TID 12/25/16 [History Confirmed 12/25/16 ] Ferrous Sulfate TAB* 325 mg PO QID 12/25/16 [History Confirmed 12/25/16] traMADol TAB* [Ultram*] 50 mg PO Q6HR PRN 12/25/16 [History Confirmed 12/25/16] PMH/Surg Hx/FS Hx/Imm Hx Endocrine/Hematology History: Comment Only: Other Endocrine/Hematological Disorders - anemia Cardiovascular History: Reports: Hx Hypertension, Hx Pacemaker/ICD Respiratory History: Reports: Hx Chronic Bronchitis Denies: Hx Asthma, Hx Chronic Obstructive Pulmonary Disease (COPD) Musculoskeletal History: Reports: Hx Arthritis - GENERAL Sensory History: Reports: Hx Contacts or Glasses Denies: Hx Hearing Aid Opthamlomology History: Reports: Hx Contacts or Glasses Psychiatric History: Reports: Hx Anxiety - R/T SURGERY - Surgical History Surgery Procedure, Year, and Place: RIGHT HIP REPLACEMENT X2 [facility] 2011. LEFT HIP REPLACEMENT 2009. LEFT ORIF UPPER ARM 2010. TUBALLIGATION 50 YEARS AGO Hx Anesthesia Reactions: No Infectious Disease History: No Infectious Disease History: Denies: Hx Clostridium Difficile, Hx Hepatitis, Hx Human Immunodeficiency Virus (HIV), Hx of Known/Suspected MRSA, Hx Shingles, Hx Tuberculosis, Hx Known/ Suspected VRE, Hx Known/Suspected VRSA, History Other Infectious Disease, Traveled Outside the [place] in Last 30 Days - Family History Known Family History: Positive: Hypertension - Social History Occupation: Unemployed Lives: Alone Alcohol Use: None Substance Use Type: Reports: None Smoking Status (MU): Never Smoked Tobacco Review of Systems Constitutional: Negative Negative: Fever, Chills Eyes: Negative ENT: Negative Cardiovascular: Negative Negative: Palpitations, Chest Pain Positive: Shortness Of Breath. Negative: Cough Gastrointestinal: Negative Genitourinary: Negative Musculoskeletal: Negative Skin: Negative Positive: Weakness Psychological: Normal All Other Systems Reviewed And Are Negative: Yes Physical Exam Triage Information Reviewed: Yes Vital Signs On Initial Exam: Initial Vitals Temp Pulse Resp BP Pulse Ox 96.8 F 96 16 82/48 0 12/25/16 14:13 12/25/16 14:13 12/25/16 14:13 12/25/16 14:13 12/25/16 14:13 Vital Signs Reviewed: Yes Appearance: Positive: Well-Appearing, No Pain Distress, Well-Nourished Skin: Positive: Warm, Dry Head/Face: Positive: Normal Head/Face Inspection. Negative: Temporal Artery Tenderness, TMJ Tenderness Eyes: Positive: EOMI, VERONIKA ENT: Positive: Normal ENT inspection, Hearing grossly normal, Other - dry oral mucosa Neck: Positive: Supple, Nontender Respiratory/Lung Sounds: Positive: Clear to Auscultation, Breath Sounds Present , Wheezes - expiratory Cardiovascular: Positive: RRR, Pulses are Symmetrical in both Upper and Lower Extremities. Negative: Murmur Abdomen Description: Positive: Nontender, Soft Bowel Sounds: Positive: Present Musculoskeletal: Positive: Strength/ROM Intact Neurological: Positive: Sensory/Motor Intact, Alert, Oriented to Person Place, Time Psychiatric: Positive: Affect/Mood Appropriate Diagnostics - Vital Signs Vital Signs Temp Pulse Resp BP Pulse Ox 12/25/16 14:51 109 21 12/25/16 14:18 96.8 F 92 20 82/48 0 12/25/16 14:13 96.8 F 96 16 82/48 0 - Laboratory Lab Results: Lab Results 12/25/16 12/25/16 12/25/16 Range/Units 14:05 14:05 14:05 WBC 13.1 H (3.5-10.8) 10^3/ul RBC 2.69 L (4.0-5.4) 10^6/ul Hgb 7.5 L (12.0-16.0) g/dl Hct 24 L (35-47) % MCV 90 (80-97) fL MCH 28 (27-31) pg MCHC 31 (31-36) g/dl RDW 17 H (10.5-15) % Plt Count 103 L (150-450) 10^3/ul MPV 9 (7.4-10.4) um3 Absolute Neuts (auto) 8.9 H (1.5-7.7) 10^3/ul Absolute Lymphs (auto) 1.5 (1.0-4.8) 10^3/ul Absolute Monos (auto) 2.5 H (0-0.8) 10^3/ul Absolute Eos (auto) 0 (0-0.6) 10^3/ul Absolute Basos (auto) 0.2 (0-0.2) 10^3/ul Absolute Nucleated RBC 0.05 10^3/ul Neutrophils % Pending Normal RBC Morphology Pending INR (Anticoag Therapy) 1.28 H (0.89-1.11) APTT 25.7 L (26.0-36.3) seconds Sodium 131 L (133-145) mmol/L Potassium TNP Chloride 96 L (101-111) mmol/L Carbon Dioxide 20 L (22-32) mmol/L Anion Gap 15 H (2-11) mmol/L BUN 36 H (6-24) mg/dL Creatinine 1.82 H (0.51-0.95) mg/dL Est GFR ( Amer) 34.8 (>60) Est GFR (Non-Af Amer) 27.1 (>60) BUN/Creatinine Ratio 19.8 (8-20) Glucose 181 H (70-100) mg/dL Lactic Acid (0.5-2.0) mmol/L Calcium 8.6 (8.6-10.3) mg/dL Total Bilirubin 1.00 (0.2-1.0) mg/dL AST TNP ALT 29 (7-52) U/L Alkaline Phosphatase 213 H (34-104) U/L Troponin I 0.00 (<0.04) ng/mL Total Protein 6.0 L (6.4-8.9) g/dL Albumin 2.9 L (3.2-5.2) g/dL Globulin 3.1 (2-4) g/dL Albumin/Globulin Ratio 0.9 L (1-3) 12/25/16 Range/Units 14:05 WBC (3.5-10.8) 10^3/ul RBC (4.0-5.4) 10^6/ul Hgb (12.0-16.0) g/dl Hct (35-47) % MCV (80-97) fL MCH (27-31) pg MCHC (31-36) g/dl RDW (10.5-15) % Plt Count (150-450) 10^3/ul MPV (7.4-10.4) um3 Absolute Neuts (auto) (1.5-7.7) 10^3/ul Absolute Lymphs (auto) (1.0-4.8) 10^3/ul Absolute Monos (auto) (0-0.8) 10^3/ul Absolute Eos (auto) (0-0.6) 10^3/ul Absolute Basos (auto) (0-0.2) 10^3/ul Absolute Nucleated RBC 10^3/ul Neutrophils % Normal RBC Morphology INR (Anticoag Therapy) (0.89-1.11) APTT (26.0-36.3) seconds Sodium (133-145) mmol/L Potassium Chloride (101-111) mmol/L Carbon Dioxide (22-32) mmol/L Anion Gap (2-11) mmol/L BUN (6-24) mg/dL Creatinine (0.51-0.95) mg/dL Est GFR ( Amer) (>60) Est GFR (Non-Af Amer) (>60) BUN/Creatinine Ratio (8-20) Glucose (70-100) mg/dL Lactic Acid 4.5 H* (0.5-2.0) mmol/L Calcium (8.6-10.3) mg/dL Total Bilirubin (0.2-1.0) mg/dL AST ALT (7-52) U/L Alkaline Phosphatase (34-104) U/L Troponin I (<0.04) ng/mL Total Protein (6.4-8.9) g/dL Albumin (3.2-5.2) g/dL Globulin (2-4) g/dL Albumin/Globulin Ratio (1-3) Result Diagrams: 12/27/16 05:45 12/27/16 05:45 Lab Statement: Any lab studies that have been ordered have been reviewed, and results considered in the medical decision making process. - Radiology CXR Xray Interpretation: No Acute Changes - IMPRESSION: COPD. NO ACTIVE CARDIOPULMONARY DISEASE. Radiology Interpretation Completed By: Radiologist - EKG 1558. Cardiac Rate: NL - 93bpm ST Segment: Normal EKG Interpretation: Paced rhythm. NO STEMI Re-Evaluation - Re-Evaluation First Eval Re-Evaluation Time: 14:36 Comment: Pt is in supine position. Systallic BP is 120 Course/Dx - Course Course Of Treatment: Reviewed pts medication and allergy lists. Blood pressure noted. - Diagnoses Provider Diagnoses: Severe sepsis, Chronic anemia, Shortness of breath, Hypotension, Malodorous urine Discharge - Discharge Plan Condition: Fair Disposition: ADMITTED TO [facility] documentation as recorded by the Tim hurd Benjamin accurately reflects the service I personally performed and the decisions made by , Pradeep Valverde MD.
[2016-12-28] MEDS: Heparin VIAL(*) 5000 UNITS/ML VIAL (FIVE THOUSAND) SUBCUT SCH (05:29)
[2016-12-28] MEDS: oxyCODONE/Acetamin 5/325 MG* TAB PO PRN (08:34)
[2016-12-28 08:35] LABS: Hematocrit 29 % (35-47); Hemoglobin 9.5 g/dl (12.0-16.0); Mean Corpuscular HGB Conc 33 g/dl (31-36); Mean Corpuscular Hemoglobin 29 pg (27-31); Mean Corpuscular Volume 89 fL (80-97); Red Blood Count 3.29 10^6/ul (4.0-5.4); Red Cell Distribution Width 17 % (10.5-15); White Blood Count 6.4 10^3/ul (3.5-10.8)
[2016-12-28 08:36] LABS: Add Diff/Slide Review? Manual Diff Added; Comments Flag Yes
[2016-12-28 08:41] LABS: Albumin 2.4 g/dL (3.2-5.2); BUN/Creatinine Ratio 23.2 (8-20); Calcium 8.2 mg/dL (8.6-10.3); EGFR African American 53.7 (>60); EGFR Non-African American 41.8 (>60); Globulin 2.2 g/dL (2-4); Potassium 4.2 mmol/L (3.5-5.0); Total Bilirubin 0.8 mg/dL (0.2-1.0); Total Protein 4.6 g/dL (6.4-8.9)
[2016-12-28 09:33] LABS: Eosinophils % 2 % (0-6); Immature Granulocytes 1 % (0-9); Neutrophil % 75 % (38-83)
[2016-12-28 09:35] LABS: Hypochromasia 1+; Polychromasia 1+
[2016-12-28 09:36] LABS: Add Path Review? YES
--- NOTE | 2016-12-28 09:42 | PN ---
Progress Note - Progress Note Date of Service: 12/28/16 SOAP: Admission data reviewed. Patient known to our service when consulted on last admission for anemia and renal insufficiency. Bone marrow biopsy done on the 03 of December. Per pathology report ~10% atypical plasma cell population as well as scattered small lymphocytes. Flow notable for a CD5, CD 20 positive and CD10 negative population. FISH negative for CLL and Bcl-1. IHC positive it appears for 2 separate populations, one CD138+ (10%) and Ki-67 index of 30% in lymphoid aggregates (that are CD20 and CD5 positive by IHC as well). This suggests possibility of 2 processes, one atypical CLL, and a plasma cell dyscrasia. IgM positive (small). Her imaging does show hepatosplenomegaly ( more consistent with CLL OR waldenstrom's than multiple myeloma) though there are multiple age indeterminate compression fractures. Subjective: feels better today but "I am not going home". "I can only walk 200 feet at a time and I need to be able to do more" no diarrhea, no cough, no abdominal pain, no SOB at rest Objective: Vital Signs Temp Pulse Resp BP Pulse Ox 97.5 F 81 18 124/52 99 12/28/16 07:27 12/28/16 07:27 12/28/16 08:34 12/28/16 07:27 12/28/16 07:27 lying flat in bed in nad perr eomi CTA bl s1 s2nl soft nt no obvious hsm bilateral le edema scattered ecchymoses A+O x 3, grossly nonfocal Laboratory Results - last 24 hr 12/25/16 12/26/16 12/27/16 14:05 06:15 10:17 WBC RBC Hgb Hct MCV MCH MCHC RDW Plt Count MPV Immature Gran % (Auto) Absolute Neuts (auto) Absolute Lymphs (auto) Absolute Monos (auto) Absolute Eos (auto) Absolute Basos (auto) Absolute Nucleated RBC Neutrophils % Band Neutrophils % Lymphocytes % Monocytes % Eosinophils % Normal RBC Morphology Polychromasia Hypochromasia Elliptocytes Haptoglobin 147 INR (Anticoag Therapy) Sodium Potassium Chloride Carbon Dioxide Anion Gap BUN Creatinine Est GFR ( Amer) Est GFR (Non-Af Amer) BUN/Creatinine Ratio Glucose Calcium Total Bilirubin AST ALT Alkaline Phosphatase Total Protein Albumin Globulin Albumin/Globulin Ratio Vancomycin Trough 20.7 Blood Type A Negative Antibody Screen Negative Crossmatch See Detail 12/28/16 12/28/16 12/28/16 08:08 08:08 08:09 WBC 6.4 RBC 3.29 L Hgb 9.5 L Hct 29 L MCV 89 MCH 29 MCHC 33 RDW 17 H Plt Count 54 L MPV 9 Immature Gran % (Auto) 1 Absolute Neuts (auto) 4.3 Absolute Lymphs (auto) 0.9 L Absolute Monos (auto) 1.1 H Absolute Eos (auto) 0.1 Absolute Basos (auto) 0 Absolute Nucleated RBC 0.01 Neutrophils % 75 Band Neutrophils % 1 Lymphocytes % 11 L Monocytes % 11 Eosinophils % 2 Normal RBC Morphology Not Reportable Polychromasia 1+ Hypochromasia 1+ Elliptocytes 1+ Haptoglobin INR (Anticoag Therapy) 0.95 Sodium 137 Potassium 4.2 Chloride 110 Carbon Dioxide 22 Anion Gap 5 BUN 29 H Creatinine 1.25 H Est GFR ( Amer) 53.7 Est GFR (Non-Af Amer) 41.8 BUN/Creatinine Ratio 23.2 H Glucose 100 Calcium 8.2 L Total Bilirubin 0.80 AST 21 ALT 21 Alkaline Phosphatase 143 H Total Protein 4.6 L Albumin 2.4 L Globulin 2.2 Albumin/Globulin Ratio 1.1 Vancomycin Trough Blood Type Antibody Screen Crossmatch Assessment: 76 yo F w multiple medical problems who presented with leukocytosis, weakness and hypotension thought 2/2 sepsis, though work up negative, with worsening anemia and thrombocytopenia. Her bone marrow biopsy shows likely two separate processes. Dr. Cannon or myself will need to review this with the pathologists on Thursday. I do question if this could be a Waldenstrom's macroglobulinemia. If this is CLL and a plasma cell dyscrasia we will need to determine which one is the more pressing (which can be difficult) as there are few overlapping treatments. If immediate treatment required we could give IV dexamethasone 40 mg daily x 4 days while determining. She is currently deferring discharge and has falling platelets and so I will order this starting today. I would like to check quantitative immunoglobulins, k:l light chains, b2 microglobulins, and a skeletal survey to see if these compression fractures may be related to lytic lesions (vs. known osteoporosis). If she is staying I would also check 24 hour urine light chains. I have explained the rationale for this at length to Angela.
[2016-12-28 09:44] LABS: Mean Platelet Volume 9 um3 (7.4-10.4)
--- NOTE | 2016-12-28 10:58 | PN ---
Subjective Date of Service: 12/28/16 Interval History: We transferred Ms. Austin from the unit to the floors yesterday, and she has continued to be hemodynamically stable. She has no complaints today other than feeling that her hips are stiff and she feels very uncomfortable with the thought of going home. She was evaluated by Dr. Cunningham this morning, and is open to starting therapy while she is here and pursuing further work up of possible CLL vs. plasma cell dyscrasia. She has continued to be afebrile, and denies cough, sob, chest pain, nausea, vomiting, diarrhea, constipation. She does note some pain at the site of her decubitus ulcers. Family History: Unchanged from Admission Social History: Unchanged from Admission Past Medical History: Unchanged from Admission Objective Active Medications: Heparin Sodium (Porcine) (Heparin Vial(*)) 5,000 units SUBCUT Q8HR PATIENCE Last Admin: 12/28/16 05:29 Dose: 5,000 units Dexamethasone Sodium Phosphate (40 mg/ Sodium Chloride) 60 mls @ 120 mls/hr IVPB Q24HR PATIENCE Stop: 01/01/17 09:59 Oxycodone/Acetaminophen (Percocet 5/325 Tab*) 1 tab PO Q6H PRN PRN Reason: PAIN Last Admin: 12/28/16 08:34 Dose: 1 tab Vital Signs 12/27/16 12/27/16 12/27/16 11:00 12:00 13:00 Temperature 98.6 F 98.6 F Pulse Rate 66 75 Respiratory 10 25 15 Rate Blood Pressure 109/64 124/78 108/53 (mmHg) O2 Sat by Pulse 96 97 Oximetry 12/27/16 12/27/16 12/27/16 14:00 14:51 19:22 Temperature 97.9 F 98.0 F Pulse Rate 70 71 Respiratory 22 18 16 Rate Blood Pressure 99/56 137/53 104/44 (mmHg) O2 Sat by Pulse 99 99 Oximetry 12/27/16 12/27/16 12/28/16 20:00 23:25 03:23 Temperature 98.3 F 98.0 F Pulse Rate 79 79 Respiratory 16 16 16 Rate Blood Pressure 117/50 99/51 (mmHg) O2 Sat by Pulse 97 98 Oximetry 12/28/16 12/28/16 07:27 08:34 Temperature 97.5 F Pulse Rate 81 Respiratory 17 18 Rate Blood Pressure 124/52 (mmHg) O2 Sat by Pulse 99 Oximetry Oxygen Devices in Use Now: None Appearance: alert, well appearing Eyes: No Scleral Icterus, PERRLA Ears/Nose/Mouth/Throat: NL Teeth, Lips, Gums, Clear Oropharnyx Neck: NL Appearance and Movements; NL JVP, Trachea Midline Respiratory: Symmetrical Chest Expansion and Respiratory Effort, Clear to Auscultation Cardiovascular: NL Sounds; No Murmurs; No JVD, RRR, - - pacemaker left chest wall Abdominal: NL Sounds; No Tenderness; No Distention, No Hepatosplenomegaly Lymphatic: No Cervical Adenopathy, No Axillary Adenopathy Extremities: - - LLE > RLE Skin: - - skin tear on right lim; scattered echymoses on legs and arms and chest Neurological: Alert and Oriented x 3 Nutrition: Taking PO's Result Diagrams: 12/28/16 08:09 12/28/16 08:08 Additional Lab and Data: Lab Results 12/25/16 12/25/16 12/25/16 Range/Units 14:05 14:05 14:05 WBC 13.1 H (3.5-10.8) 10^3/ul RBC 2.69 L (4.0-5.4) 10^6/ul Hgb 7.5 L (12.0-16.0) g/dl Hct 24 L (35-47) % MCV 90 (80-97) fL MCH 28 (27-31) pg MCHC 31 (31-36) g/dl RDW 17 H (10.5-15) % Plt Count 103 L (150-450) 10^3/ul MPV 9 (7.4-10.4) um3 Absolute Neuts (auto) 8.9 H (1.5-7.7) 10^3/ul Absolute Lymphs (auto) 1.5 (1.0-4.8) 10^3/ul Absolute Monos (auto) 2.5 H (0-0.8) 10^3/ul Absolute Eos (auto) 0 (0-0.6) 10^3/ul Absolute Basos (auto) 0.2 (0-0.2) 10^3/ul Absolute Nucleated RBC 0.05 10^3/ul Neutrophils % Pending Normal RBC Morphology Pending INR (Anticoag Therapy) 1.28 H (0.89-1.11) APTT 25.7 L (26.0-36.3) seconds Sodium 131 L (133-145) mmol/L Potassium TNP Chloride 96 L (101-111) mmol/L Carbon Dioxide 20 L (22-32) mmol/L Anion Gap 15 H (2-11) mmol/L BUN 36 H (6-24) mg/dL Creatinine 1.82 H (0.51-0.95) mg/dL Est GFR ( Amer) 34.8 (>60) Est GFR (Non-Af Amer) 27.1 (>60) BUN/Creatinine Ratio 19.8 (8-20) Glucose 181 H (70-100) mg/dL Lactic Acid (0.5-2.0) mmol/L Calcium 8.6 (8.6-10.3) mg/dL Total Bilirubin 1.00 (0.2-1.0) mg/dL AST TNP ALT 29 (7-52) U/L Alkaline Phosphatase 213 H (34-104) U/L Troponin I 0.00 (<0.04) ng/mL Total Protein 6.0 L (6.4-8.9) g/dL Albumin 2.9 L (3.2-5.2) g/dL Globulin 3.1 (2-4) g/dL Albumin/Globulin Ratio 0.9 L (1-3) 12/25/ Range/Units 14:05 WBC (3.5-10.8) 10^3/ul RBC (4.0-5.4) 10^6/ul Hgb (12.0-16.0) g/dl Hct (35-47) % MCV (80-97) fL MCH (27-31) pg MCHC (31-36) g/dl RDW (10.5-15) % Plt Count (150-450) 10^3/ul MPV (7.4-10.4) um3 Absolute Neuts (auto) (1.5-7.7) 10^3/ul Absolute Lymphs (auto) (1.0-4.8) 10^3/ul Absolute Monos (auto) (0-0.8) 10^3/ul Absolute Eos (auto) (0-0.6) 10^3/ul Absolute Basos (auto) (0-0.2) 10^3/ul Absolute Nucleated RBC 10^3/ul Neutrophils % Normal RBC Morphology INR (Anticoag Therapy) (0.89-1.11) APTT (26.0-36.3) seconds Sodium (133-145) mmol/L Potassium Chloride (101-111) mmol/L Carbon Dioxide (22-32) mmol/L Anion Gap (2-11) mmol/L BUN (6-24) mg/dL Creatinine (0.51-0.95) mg/dL Est GFR ( Amer) (>60) Est GFR (Non-Af Amer) (>60) BUN/Creatinine Ratio (8-20) Glucose (70-100) mg/dL Lactic Acid 4.5 H* (0.5-2.0) mmol/L Calcium (8.6-10.3) mg/dL Total Bilirubin (0.2-1.0) mg/dL AST ALT (7-52) U/L Alkaline Phosphatase (34-104) U/L Troponin I (<0.04) ng/mL Total Protein (6.4-8.9) g/dL Albumin (3.2-5.2) g/dL Globulin (2-4) g/dL Albumin/Globulin Ratio (1-3) Microbiology and Other Data: Microbiology 12/25/16 20:35 Nasal Screen MRSA (PCR)(SHEMAR) - Final Nasal Mrsa Negative Assess/Plan/Problems-Billing Assessment: 1. Thrombocytopenia. Platelet count has continued to fall since admission. She is not currently on any medications that cause thrombocytopenia (however she was on Pip/Tazo until yesterday, which may have contributed). Given the results from her bone marrow biopsy, I suspect her thrombocytopenia is a reflection of reduced production ( rather than increased consumption). She had no hemolysis or fever, likely ruling out TTP, coags are normal ruling out DIC, and while HIT is on the differential, her marrow pathology is more likely the etiology. She was evaluated by Dr. Cunningham this morning, who started decadron. No bleeding. Will place sc heparin on hold as platelets continue to fall. 2. Plasma Cell Dyscrasia/B-Cell Lymphoproliferative Disorder, with Normocytic Anemia I suspect this is actually the source of her fatigue and shortness of breath that caused her to present to the ED. Hemodynamically stable with no source of blood loss. She received two units of PRBCs since admission with appropriate response. 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 This likely explains both her normocytic anemia and her thrombocytopenia. She was evaluated by hematology this morning, who recommended a skeletal survey and urine light chains. Ms. Austin is agreeable to pursuing treatment. Regarding other work up of her anemia, a normal LDH ruled out hemolysis, and she has no blood loss. An EGD was done at the last admission and ruled out an upper GI source, and FOBT was negative at that time (earlier this month). 3. SIRS, resolved No source has been found, and subjectively she localizes no source. While her blood pressure improved when the BP cuff was switched, raising suspicion about whether she was truly hypotensive at admission, she did have elevated lactate, leukocytosis, AGMA, and thrombocytopenia. Still, her CXR is unremarkable, her UA is unremarkable, her blood cultures have no growth to date, she has no diarrhea to suggest c. diff, no RUQ pain to suggest cholecystitis. The most probable source if this was truly sepsis at this point is her skin, however her decubitus ulcers do not appear infected to me. She has been normotensive, afebrile, and her leukocytosis has normalized. No tachycardia, tachypnea to suggest ongoing sepsis. Antibiotics were discontinued yesterday. While she met SIRS criteria at admission, I suspect it may have been in response to anxiety and anemia. 4. TEJ Likely prerenal due to sepsis versus anemia versus involvement of myeloma. Continues to improve with only PO intake. 5. Elevated Alk Phos Concerning for bony involvement if myeloma is present; will follow up skeletal survey.
--- NOTE | 2016-12-28 11:15 | RAD ---
INDICATION: Metastatic skeletal survey, myeloma. COMPARISON: Comparison is made with a prior chest x-ray study from December 25, 2016. TECHNIQUE: Multiple views of the axial and appendicular bones were obtained. FINDINGS: Chest: A single AP view of the chest was obtained. The heart is within normal limits in size. There is a dual-chamber transvenous pacemaker present. There are small bilateral pleural effusions which appear new from the prior study. There are postsurgical changes in the proximal left humerus. No other focal osseous abnormalities are seen. Skull: Frontal and lateral views of the skull was obtained. There is a solitary nonspecific lucency present in the frontal bones seen on the lateral image. Cervical spine: AP and lateral views of the cervical spine was obtained. The vertebra are in normal alignment. No fracture or significant focal osseous abnormality is seen. There is moderate to severe degenerative disc disease at the C4-C5, C5-C6 and C6-C7 levels. Ribs: 2 views of the ribs were obtained. There are several old left posterior lateral rib fractures. No acute fracture or other focal osseous abnormality is seen. Dorsal spine: AP and lateral views of the dorsal spine were obtained. The bones appear osteoporotic. There are multiple compression fractures of mid and lower dorsal vertebra which are unchanged from a prior CT of the chest from December 17, 2016. Humeri: AP views of both humeri were obtained. The patient is status post operative reduction internal fixation of a fracture of the proximal humerus. There is an intramedullary wilmer present. The fracture appears healed. No other focal bony abnormalities are seen. Forearm: AP views of both forearms were obtained. No focal osseous abnormalities are seen. Lumbar spine: A lateral view of the lumbar spine was obtained. No fracture or significant focal osseous abnormality is seen. There is moderate degenerative disc disease at multiple levels. Pelvis: An AP view of the pelvis is obtained. The patient is status post total bilateral hip replacement surgery and reduction of fractures of both proximal femurs. No other focal osseous abnormalities are seen. Femurs: AP views of both femurs were obtained. Post surgical changes are noted in both proximal femurs from bilateral hip replacement surgeries and fracture reductions. No other focal osseous normalities are seen. Lower legs: AP views of both lower legs are obtained. No significant focal side osseous abnormality is seen. IMPRESSION: 1. SOLITARY NONSPECIFIC LUCENCY PRESENT WITHIN THE FRONTAL BONE SEEN ON THE LATERAL IMAGE OF THE SKULL. 2. MULTIPLE COMPRESSION FRACTURES OF MID AND LOWER DORSAL VERTEBRA UNCHANGED FROM THE RECENT PRIOR CT STUDY. 3. NEW SMALL BILATERAL PLEURAL EFFUSIONS.
[2016-12-28] MEDS: Dexamethasone IV* 40 MG in NS 0.9% 50 ML* 50 ML IVPB SCH (13:01)
[2016-12-28] MEDS: traMADol TAB* 50 MG PO PRN (18:18)
[2016-12-29] MEDS: traMADol TAB* 50 MG PO PRN ×3 (01:40→22:37)
[2016-12-29] MEDS ORDERED: Dexamethasone IV* 4 MG/ML 5 ML VIAL (20 MG) ONE (08:22)
[2016-12-29] MEDS: Dexamethasone IV* 40 MG in NS 0.9% 50 ML* 50 ML IVPB SCH (09:46)
[2016-12-29 11:07] LABS: Hematocrit 26 % (35-47); Hemoglobin 8.7 g/dl (12.0-16.0); Mean Corpuscular HGB Conc 33 g/dl (31-36); Mean Corpuscular Hemoglobin 29 pg (27-31); Mean Corpuscular Volume 89 fL (80-97); Mean Platelet Volume 8 um3 (7.4-10.4); Red Blood Count 2.97 10^6/ul (4.0-5.4); Red Cell Distribution Width 17 % (10.5-15); White Blood Count 8.3 10^3/ul (3.5-10.8)
[2016-12-29 11:22] LABS: EGFR African American 59.2 (>60)
[2016-12-29 11:28] LABS: Comments Flag Yes
--- NOTE | 2016-12-29 11:38 | PN ---
Subjective Date of Service: 12/29/16 Interval History: Ms. Austin feels good today. No bleeding, bruising, shortness of breath, weakness, chest pain, diarrhea. She has been up and walking without trouble. Family History: Unchanged from Admission Social History: Unchanged from Admission Past Medical History: Unchanged from Admission Objective Active Medications: Dexamethasone Sodium Phosphate (40 mg/ Sodium Chloride) 60 mls @ 120 mls/hr IVPB Q24HR PATIENCE Stop: 01/01/17 09:59 Last Admin: 12/29/16 09:46 Dose: 120 mls/hr Tramadol HCl (Ultram*) 50 mg PO Q6H PRN PRN Reason: PAIN - MODERATE TO SEVERE Last Admin: 12/29/16 01:40 Dose: 50 mg Vital Signs 12/28/16 12/28/16 12/28/16 15:37 18:18 19:22 Temperature 98.6 F 98.2 F Pulse Rate 87 75 Respiratory 20 18 20 Rate Blood Pressure 120/58 140/65 (mmHg) O2 Sat by Pulse 96 98 Oximetry 12/28/16 12/28/16 12/28/16 20:00 20:18 23:22 Temperature 98.0 F Pulse Rate 71 Respiratory 16 16 16 Rate Blood Pressure 105/55 (mmHg) O2 Sat by Pulse 98 Oximetry 12/29/16 12/29/16 12/29/16 01:40 01:57 03:24 Temperature 97.6 F 98.3 F Pulse Rate 74 76 Respiratory 16 16 16 Rate Blood Pressure 128/56 117/51 (mmHg) O2 Sat by Pulse 100 99 Oximetry 12/29/16 12/29/16 12/29/16 03:40 07:26 08:00 Temperature 97.5 F Pulse Rate 72 Respiratory 14 16 16 Rate Blood Pressure 155/63 (mmHg) O2 Sat by Pulse 98 98 Oximetry Oxygen Devices in Use Now: None Appearance: alert, dishevled, no distress Eyes: No Scleral Icterus, PERRLA Ears/Nose/Mouth/Throat: NL Teeth, Lips, Gums, Clear Oropharnyx Neck: NL Appearance and Movements; NL JVP, Trachea Midline Respiratory: Symmetrical Chest Expansion and Respiratory Effort, Clear to Auscultation Cardiovascular: NL Sounds; No Murmurs; No JVD, RRR - pacemaker right chest wall , - Abdominal: NL Sounds; No Tenderness; No Distention, No Hepatosplenomegaly Lymphatic: No Cervical Adenopathy Extremities: - - edema L>R Skin: - - scattered echymoses arms and legs, sacral decubitus ulcers noted x 3 appear noninfected Neurological: Alert and Oriented x 3 Result Diagrams: 12/29/16 10:55 12/29/16 10:55 Additional Lab and Data: Lab Results 12/25/16 12/25/16 12/25/16 Range/Units 14:05 14:05 14:05 WBC 13.1 H (3.5-10.8) 10^3/ul RBC 2.69 L (4.0-5.4) 10^6/ul Hgb 7.5 L (12.0-16.0) g/dl Hct 24 L (35-47) % MCV 90 (80-97) fL MCH 28 (27-31) pg MCHC 31 (31-36) g/dl RDW 17 H (10.5-15) % Plt Count 103 L (150-450) 10^3/ul MPV 9 (7.4-10.4) um3 Absolute Neuts (auto) 8.9 H (1.5-7.7) 10^3/ul Absolute Lymphs (auto) 1.5 (1.0-4.8) 10^3/ul Absolute Monos (auto) 2.5 H (0-0.8) 10^3/ul Absolute Eos (auto) 0 (0-0.6) 10^3/ul Absolute Basos (auto) 0.2 (0-0.2) 10^3/ul Absolute Nucleated RBC 0.05 10^3/ul Neutrophils % Pending Normal RBC Morphology Pending INR (Anticoag Therapy) 1.28 H (0.89-1.11) APTT 25.7 L (26.0-36.3) seconds Sodium 131 L (133-145) mmol/L Potassium TNP Chloride 96 L (101-111) mmol/L Carbon Dioxide 20 L (22-32) mmol/L Anion Gap 15 H (2-11) mmol/L BUN 36 H (6-24) mg/dL Creatinine 1.82 H (0.51-0.95) mg/dL Est GFR ( Amer) 34.8 (>60) Est GFR (Non-Af Amer) 27.1 (>60) BUN/Creatinine Ratio 19.8 (8-20) Glucose 181 H (70-100) mg/dL Lactic Acid (0.5-2.0) mmol/L Calcium 8.6 (8.6-10.3) mg/dL Total Bilirubin 1.00 (0.2-1.0) mg/dL AST TNP ALT 29 (7-52) U/L Alkaline Phosphatase 213 H (34-104) U/L Troponin I 0.00 (<0.04) ng/mL Total Protein 6.0 L (6.4-8.9) g/dL Albumin 2.9 L (3.2-5.2) g/dL Globulin 3.1 (2-4) g/dL Albumin/Globulin Ratio 0.9 L (1-3) 08//17 Range/Units 14:05 WBC (3.5-10.8) 10^3/ul RBC (4.0-5.4) 10^6/ul Hgb (12.0-16.0) g/dl Hct (35-47) % MCV (80-97) fL MCH (27-31) pg MCHC (31-36) g/dl RDW (10.5-15) % Plt Count (150-450) 10^3/ul MPV (7.4-10.4) um3 Absolute Neuts (auto) (1.5-7.7) 10^3/ul Absolute Lymphs (auto) (1.0-4.8) 10^3/ul Absolute Monos (auto) (0-0.8) 10^3/ul Absolute Eos (auto) (0-0.6) 10^3/ul Absolute Basos (auto) (0-0.2) 10^3/ul Absolute Nucleated RBC 10^3/ul Neutrophils % Normal RBC Morphology INR (Anticoag Therapy) (0.89-1.11) APTT (26.0-36.3) seconds Sodium (133-145) mmol/L Potassium Chloride (101-111) mmol/L Carbon Dioxide (22-32) mmol/L Anion Gap (2-11) mmol/L BUN (6-24) mg/dL Creatinine (0.51-0.95) mg/dL Est GFR ( Amer) (>60) Est GFR (Non-Af Amer) (>60) BUN/Creatinine Ratio (8-20) Glucose (70-100) mg/dL Lactic Acid 4.5 H* (0.5-2.0) mmol/L Calcium (8.6-10.3) mg/dL Total Bilirubin (0.2-1.0) mg/dL AST ALT (7-52) U/L Alkaline Phosphatase (34-104) U/L Troponin I (<0.04) ng/mL Total Protein (6.4-8.9) g/dL Albumin (3.2-5.2) g/dL Globulin (2-4) g/dL Albumin/Globulin Ratio (1-3) Microbiology and Other Data: Microbiology 12/25/16 20:35 Nasal Screen MRSA (PCR)(SHEMAR) - Final Nasal Mrsa Negative Assess/Plan/Problems-Billing Assessment: 1. Thrombocytopenia. Given the results from her bone marrow biopsy, I suspect her thrombocytopenia is a reflection of reduced production (rather than increased consumption). She was started on decadron yesterday, and platelet count has risen to 60k from 54k yesterday. She is not on any medications that cause thrombocytopenia (however she was on Pip/Tazo until 12/27, which may have contributed). She had no hemolysis or fever, likely ruling out TTP, coags are normal ruling out DIC, and while HIT is on the differential, her marrow pathology is more likely the etiology. No bleeding. SC heparin on hold. 2. Plasma Cell Dyscrasia/B-Cell Lymphoproliferative Disorder, with Normocytic Anemia Plan for heme and pathology to review biopsy tomorrow and develop a plan for further work up as necessary vs. beginning chemotherapy. I suspect this is actually the source of her fatigue and shortness of breath that caused her to present to the ED. Hemodynamically stable with no source of blood loss. She received two units of PRBCs since admission with appropriate response. 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 This likely explains both her normocytic anemia and her thrombocytopenia. A skeletal survery and urine light chains are pending. Ms. Austin is agreeable to pursuing treatment. Regarding other work up of her anemia, a normal LDH ruled out hemolysis, and she has no blood loss. An EGD was done at the last admission and ruled out an upper GI source, and FOBT was negative at that time (earlier this month). 3. SIRS, resolved No source has been found, and subjectively she localizes no source. While she met SIRS criteria at admission, I suspect it may have been in response to anxiety and anemia. Hemodynamically stable and afebrile off antibiotics for 48 hours. 4. TEJ Likely prerenal due to sepsis versus anemia versus involvement of myeloma. Continues to improve with only PO intake. 5. Elevated Alk Phos Concerning for bony involvement if myeloma is present; will follow up skeletal survey.
[2016-12-29] MEDS ORDERED: Vancomycin Trough Check NOTE FOLLOW UP ONE (15:30)
[2016-12-30 06:20] LABS: Hematocrit 26 % (35-47); Hemoglobin 8.5 g/dl (12.0-16.0); Mean Corpuscular HGB Conc 33 g/dl (31-36); Mean Corpuscular Hemoglobin 30 pg (27-31); Mean Corpuscular Volume 90 fL (80-97); Mean Platelet Volume 8 um3 (7.4-10.4); Red Blood Count 2.87 10^6/ul (4.0-5.4); Red Cell Distribution Width 17 % (10.5-15); White Blood Count 8.5 10^3/ul (3.5-10.8)
[2016-12-30 06:21] LABS: Comments Flag Yes
[2016-12-30 06:28] LABS: EGFR African American 60.4 (>60); EGFR Non-African American 46.9 (>60); Potassium 4.5 mmol/L (3.5-5.0)
--- NOTE | 2016-12-30 10:38 | PN ---
Subjective Date of Service: 12/30/16 Interval History: Ms. Austin feels better today. She has been out of bed and has no complaints. She feels the decubitus ulcers are healing. She is anxious to talk with hematology to develop a plan for chemotherapy. She has no chest pain, shortness of breath, weakness, nausea, constipation, or diarrhea. Family History: Unchanged from Admission Social History: Unchanged from Admission Past Medical History: Unchanged from Admission Objective Active Medications: Heparin Sodium (Porcine) (Heparin Flush Picc/Ml/Cvc(*)) 0 ml FLUSH 0600,1800 [facility] Last Admin: 12/30/16 05:40 Dose: 1 ml Dexamethasone Sodium Phosphate (40 mg/ Sodium Chloride) 60 mls @ 120 mls/hr IVPB Q24HR [facility] Stop: 01/01/17 09:59 Last Admin: 12/29/16 09:46 Dose: 120 mls/hr Tramadol HCl (Ultram*) 50 mg PO Q6H PRN PRN Reason: PAIN - MODERATE TO SEVERE Last Admin: 12/29/16 22:37 Dose: 50 mg Vital Signs 12/29/16 12/29/16 12/29/16 11:23 14:29 15:28 Temperature 98.1 F 97.9 F Pulse Rate 64 66 Respiratory 14 16 20 Rate Blood Pressure 123/55 122/49 (mmHg) O2 Sat by Pulse 96 98 Oximetry 12/29/16 12/29/16 12/29/16 16:29 19:48 22:27 Temperature 98.2 F Pulse Rate 68 Respiratory 16 19 18 Rate Blood Pressure 122/50 (mmHg) O2 Sat by Pulse 98 Oximetry 12/29/16 12/29/16 12/30/16 22:37 23:16 00:37 Temperature 98.0 F Pulse Rate 62 Respiratory 18 16 16 Rate Blood Pressure 126/58 (mmHg) O2 Sat by Pulse 99 Oximetry 12/30/16 12/30/16 04:27 07:53 Temperature 98.0 F 98.0 F Pulse Rate 61 75 Respiratory 16 16 Rate Blood Pressure 117/54 111/63 (mmHg) O2 Sat by Pulse 97 98 Oximetry Oxygen Devices in Use Now: None Appearance: alert, watching tv in bed, well appearing Eyes: No Scleral Icterus, PERRLA Ears/Nose/Mouth/Throat: NL Teeth, Lips, Gums, Clear Oropharnyx Neck: NL Appearance and Movements; NL JVP, Trachea Midline Respiratory: Symmetrical Chest Expansion and Respiratory Effort, Clear to Auscultation Cardiovascular: NL Sounds; No Murmurs; No JVD, RRR, - - pacemaker right chest wall Abdominal: NL Sounds; No Tenderness; No Distention, No Hepatosplenomegaly Lymphatic: No Cervical Adenopathy Extremities: - - LLE > RLE Skin: - - scattered echymoses b/l upper and lower extremities Neurological: Alert and Oriented x 3, NL Muscle Strength and Tone Result Diagrams: 12/30/16 05:45 12/30/16 05:45 Additional Lab and Data: Lab Results 12/25/16 12/25/16 12/25/16 Range/Units 14:05 14:05 14:05 WBC 13.1 H (3.5-10.8) 10^3/ul RBC 2.69 L (4.0-5.4) 10^6/ul Hgb 7.5 L (12.0-16.0) g/dl Hct 24 L (35-47) % MCV 90 (80-97) fL MCH 28 (27-31) pg MCHC 31 (31-36) g/dl RDW 17 H (10.5-15) % Plt Count 103 L (150-450) 10^3/ul MPV 9 (7.4-10.4) um3 Absolute Neuts (auto) 8.9 H (1.5-7.7) 10^3/ul Absolute Lymphs (auto) 1.5 (1.0-4.8) 10^3/ul Absolute Monos (auto) 2.5 H (0-0.8) 10^3/ul Absolute Eos (auto) 0 (0-0.6) 10^3/ul Absolute Basos (auto) 0.2 (0-0.2) 10^3/ul Absolute Nucleated RBC 0.05 10^3/ul Neutrophils % Pending Normal RBC Morphology Pending INR (Anticoag Therapy) 1.28 H (0.89-1.11) APTT 25.7 L (26.0-36.3) seconds Sodium 131 L (133-145) mmol/L Potassium TNP Chloride 96 L (101-111) mmol/L Carbon Dioxide 20 L (22-32) mmol/L Anion Gap 15 H (2-11) mmol/L BUN 36 H (6-24) mg/dL Creatinine 1.82 H (0.51-0.95) mg/dL Est GFR ( Amer) 34.8 (>60) Est GFR (Non-Af Amer) 27.1 (>60) BUN/Creatinine Ratio 19.8 (8-20) Glucose 181 H (70-100) mg/dL Lactic Acid (0.5-2.0) mmol/L Calcium 8.6 (8.6-10.3) mg/dL Total Bilirubin 1.00 (0.2-1.0) mg/dL AST TNP ALT 29 (7-52) U/L Alkaline Phosphatase 213 H (34-104) U/L Troponin I 0.00 (<0.04) ng/mL Total Protein 6.0 L (6.4-8.9) g/dL Albumin 2.9 L (3.2-5.2) g/dL Globulin 3.1 (2-4) g/dL Albumin/Globulin Ratio 0.9 L (1-3) //17 Range/Units 14:05 WBC (3.5-10.8) 10^3/ul RBC (4.0-5.4) 10^6/ul Hgb (12.0-16.0) g/dl Hct (35-47) % MCV (80-97) fL MCH (27-31) pg MCHC (31-36) g/dl RDW (10.5-15) % Plt Count (150-450) 10^3/ul MPV (7.4-10.4) um3 Absolute Neuts (auto) (1.5-7.7) 10^3/ul Absolute Lymphs (auto) (1.0-4.8) 10^3/ul Absolute Monos (auto) (0-0.8) 10^3/ul Absolute Eos (auto) (0-0.6) 10^3/ul Absolute Basos (auto) (0-0.2) 10^3/ul Absolute Nucleated RBC 10^3/ul Neutrophils % Normal RBC Morphology INR (Anticoag Therapy) (0.89-1.11) APTT (26.0-36.3) seconds Sodium (133-145) mmol/L Potassium Chloride (101-111) mmol/L Carbon Dioxide (22-32) mmol/L Anion Gap (2-11) mmol/L BUN (6-24) mg/dL Creatinine (0.51-0.95) mg/dL Est GFR ( Amer) (>60) Est GFR (Non-Af Amer) (>60) BUN/Creatinine Ratio (8-20) Glucose (70-100) mg/dL Lactic Acid 4.5 H* (0.5-2.0) mmol/L Calcium (8.6-10.3) mg/dL Total Bilirubin (0.2-1.0) mg/dL AST ALT (7-52) U/L Alkaline Phosphatase (34-104) U/L Troponin I (<0.04) ng/mL Total Protein (6.4-8.9) g/dL Albumin (3.2-5.2) g/dL Globulin (2-4) g/dL Albumin/Globulin Ratio (1-3) Microbiology and Other Data: Microbiology 12/25/16 20:35 Nasal Screen MRSA (PCR)(SHEMAR) - Final Nasal Mrsa Negative Assess/Plan/Problems-Billing Assessment: 1. Thrombocytopenia. No bleeding. Given the results from her bone marrow biopsy, I suspect her thrombocytopenia is a reflection of reduced production (rather than increased consumption). She was started on decadron on 12/28, and platelet count has risen daily. She is not on any medications that cause thrombocytopenia (however she was on Pip/Tazo until 12/27, which may have contributed). She had no hemolysis or fever, likely ruling out TTP, coags are normal ruling out DIC, and while HIT is on the differential, her marrow pathology is more likely the etiology. Plan for decadron x 4 days total. 2. Plasma Cell Dyscrasia/B-Cell Lymphoproliferative Disorder, with Normocytic Anemia This likely explains both her normocytic anemia and her thrombocytopenia. Plan for hematology follow up outpatient to develop a plan for further work up as necessary vs. beginning chemotherapy. I suspect this is actually the source of her fatigue and shortness of breath that caused her to present to the ED. Hemodynamically stable with no source of blood loss. She received two units of PRBCs since admission with appropriate response. A skeletal survery showed one nonspecific lucency in the frontal bone; urine light chains are pending. Ms. Austin is agreeable to pursuing treatment. Regarding other work up of her anemia, a normal LDH ruled out hemolysis, and she has no blood loss. An EGD was done at the last admission and ruled out an upper GI source, and FOBT was negative at that time (earlier this month). I will arrange for hematology follow up with Dr. Cannon later this week. 3. SIRS, resolved No source has been found, and subjectively she localizes no source. While she met SIRS criteria at admission, I suspect it may have been in response to anxiety and anemia. Hemodynamically stable and afebrile off antibiotics for 72 hours. 4. TEJ Likely prerenal due anemia versus involvement of myeloma. Continues to improve with only PO intake. 5. Disposition Home tomorrow after last dose of decadron.
[2016-12-30] MEDS: Dexamethasone IV* 40 MG in NS 0.9% 50 ML* 50 ML IVPB SCH (10:57)
[2016-12-30] MEDS: Enoxaparin(*) 40 MG/0.4 ML SYR SUBCUT SCH (12:05)
[2016-12-30] MEDS: traMADol TAB* 50 MG PO PRN ×2 (12:05→20:13)
[2016-12-31] MEDS: traMADol TAB* 50 MG PO PRN ×2 (05:12→07:19)
[2016-12-31 05:35] LABS: Comments Flag Yes; Hematocrit 27 % (35-47); Hemoglobin 8.6 g/dl (12.0-16.0); Mean Corpuscular HGB Conc 32 g/dl (31-36); Mean Corpuscular Hemoglobin 29 pg (27-31); Mean Corpuscular Volume 90 fL (80-97); Mean Platelet Volume 8 um3 (7.4-10.4); Red Blood Count 2.98 10^6/ul (4.0-5.4); Red Cell Distribution Width 17 % (10.5-15); White Blood Count 7.1 10^3/ul (3.5-10.8)
[2016-12-31] MEDS: Dexamethasone IV* 40 MG in NS 0.9% 50 ML* 50 ML IVPB SCH (09:19)
[2016-12-31] MEDS: Enoxaparin(*) 40 MG/0.4 ML SYR SUBCUT SCH (11:25)
[2016-12-31 13:11] VITALS: BP 147/64
[2016-12-31 13:40] LABS: Immunoglobulin A 49 mg/dL (61 - 356); Immunoglobulin G 429 mg/dL (767 - 1590); Immunoglobulin M 435 mg/dL (37 - 286)
[2016-12-31 13:48] LABS: Urine Kappa Total Light Chain 9.88 mg/dL (<0.9000); Urine Kappa/Lambda Light Chain 12.6; Urine Lambda Total Light Chain 0.786 mg/dL (<0.7000)
[2016-12-31 13:54] LABS: Urine Kappa Total Light Chain 10.1 mg/dL (<0.9000); Urine Kappa/Lambda Light Chain 11.7; Urine Lambda Total Light Chain 0.864 mg/dL (<0.7000)
--- NOTE | 2016-12-31 17:53 | DS ---
Admission Date: 12/25/16 Discharge Date: 12/31/16 Principal Diagnosis: Plasma Cell Dyscrasia/ B-Cell Lymphoproliferative Disorder Secondary Diagnosis: Anemia Thrombocytopenia Osteoarthritis HTN Iron deficiency anemia Discharge physical exam: General: Alert, no distress, well appearing HEENT: no conjunctival pallor, PERRL, moist mucosa Neck: no JVP, no lymphadenopathy Chest: pacer right chest, RRR, no murmurs Abdomen: soft, nontender, nondistended Ext: scattered echymoses, nonpitting edema b/l (L>R), healing sacral decub ulcers x 3 Hospital Course by Problem: 1. Anemia. Her initial presentation was shortness of breath, fatigue, and anxiety. This was initially thought to be sepsis related and she was started on broad spectrum antibiotics, but no infectious source was found, so abx were discontinued. Ultimately, her symptoms were likely related to worsening anemia in the setting of a plasma cell dyscrasia/B-cell lymphoproliferative disorder. She received 2 units PRBCs during her hospitalization with good response. Regarding other anemia work up, her iron studies were consistent with iron deficiency. She had a recent hospitalization where she had an EGD which was negative except for a hiatal hernia, and FOBT was negative at that time. Hemolysis labs were negative. 2. Thrombocytopenia. Again, likely related to marrow pathology. Hematology was consulted and began decadron x 4 days. 3. Plasma Cell Dyscrasia/B cell lymphoproliferative Disorder A bone marrow biopsy was done on 12/03 and results had not returned at her last discharge. She had no gotten to follow up with hematology before she presented to the hospital. Hematology was consulted on this admission, started decadron, and will see her in the office next week to determine a plan for chemotherapy. She is agreeable to chemotherapy.
[2016-12-31 19:09] LABS: Kappa Free Light Chain 14.3 mg/dL; Kappa/Lambda Free Light Chain 17.1
== END 2016-12-31 14:10 | disposition home or self-care (01) | DRG 841 ==
LOC: ED 13:53 → ICU 19:34 → MED 12-27 14:47
PROVIDERS: ADMIT Internal Medicine; ATTEND Internal Medicine
PROC: 30233N1 Transfusion of Nonautologous Red Blood Cells into Peripheral Vein, Percutaneous Approach (ICD-10-PCS; principal; 2016-12-26)
DX: D47.Z9 Other specified neoplasms of uncertain behavior of lymphoid, hematopoietic and related tissue (principal); C90.30 Solitary plasmacytoma not having achieved remission; N17.9 Acute kidney failure, unspecified; I95.9 Hypotension, unspecified; E87.2 Acidosis; D69.6 Thrombocytopenia, unspecified; L89.90 Pressure ulcer of unspecified site, unspecified stage; I44.7 Left bundle-branch block, unspecified; Z95.0 Presence of cardiac pacemaker; Z88.1 Allergy status to other antibiotic agents; Z88.2 Allergy status to sulfonamides; J42 Unspecified chronic bronchitis; M19.90 Unspecified osteoarthritis, unspecified site; Z82.49 Family history of ischemic heart disease and other diseases of the circulatory system; D50.9 Iron deficiency anemia, unspecified; N18.9 Chronic kidney disease, unspecified; I12.9 Hypertensive chronic kidney disease with stage 1 through stage 4 chronic kidney disease, or unspecified chronic kidney disease; E78.5 Hyperlipidemia, unspecified; F41.0 Panic disorder [episodic paroxysmal anxiety]; Z96.643 Presence of artificial hip joint, bilateral; Z80.9 Family history of malignant neoplasm, unspecified; R74.8 Abnormal levels of other serum enzymes
CPT/HCPCS: 36415; 71010; 77075; 80048; 80053; 80202; 81003; 82232; 82247; 82248; 82565; 82784; 82803; 83010; 83605; 83615; 83735; 83883; 84145; 84484; 84520; 85025; 85060; 85610; 85652; 85730; 86140; 86850; 86900; 86901; 86922; 87040; 87641; 93005; 94640; 99233; A9270-GY; J0696; J1100; J1644; J1650; J2543; J2930; J3370; P9040